=== PATIENT | male | born 1940 | race Caucasian/White ===

== ENCOUNTER 2020-05-13 12:40 | Day surgery (SDC) | payer OTHER ==
[~2020-05-13] VITALS: Ht 170.2 cm; Wt 88.7 kg
[2020-05-13] MEDS ORDERED: ASPI81CH PO (14:01)
[2020-05-13] MEDS ORDERED: HYDURE500 PO (14:01)
[2020-05-13] MEDS ORDERED: VITAMIN D350 MC2 PO (14:02)
[2020-05-13] MEDS ORDERED: OMEP20ER PO (14:02)
[2020-05-13] MEDS ORDERED: TRAM50 PO (14:04)
[2020-05-13] MEDS ORDERED: ATOR20 PO (14:05)
--- NOTE | 2020-05-13 15:28 | NUR ---
05/13/20 1528 Alysia Sneed BUPIVACAINE 0.5% W/ EPI 1:200,000 MIXED W/ LIDOCAINE 2% 1:100,000 1:1 FOR PRE INJECTION PER DR. PUGH.
== END 2020-05-13 16:31 | disposition home or self-care (01) ==
LOC: ORSCSDS 12:40
PROVIDERS: Ophthalmology
PROC: 08SP0ZZ Reposition Left Upper Eyelid, Open Approach (ICD-10-PCS; principal; 2020-05-13 14:45)
PROC: 08SN0ZZ Reposition Right Upper Eyelid, Open Approach (ICD-10-PCS; principal; 2020-05-13 14:45)
DX: H02.423 Myogenic ptosis of bilateral eyelids (principal); I10 Essential (primary) hypertension; E78.00 Pure hypercholesterolemia, unspecified; J45.909 Unspecified asthma, uncomplicated; G47.33 Obstructive sleep apnea (adult) (pediatric); Z79.82 Long term (current) use of aspirin; Z79.899 Other long term (current) drug therapy
CPT/HCPCS: J0171; J2405; J2704; J3010; J7040; J7120

== ENCOUNTER → 2021-09-28 | Outpatient (CLI) | payer OTHER ==
[~2021-09-28] MED LIST: ASPI81CH PO; ATOR20 PO; HYDURE500 PO; OMEP20ER PO; TRAM50 PO; VITAMIN D350 MC2 PO
[2021-09-28 19:16] LABS: BASOPHILS PERCENT AUTO 1 % (0-2); EOSINOPHILS ABSOLUTE AUTO 0.41 K/mm3 (0.00-0.68); EOSINOPHILS PERCENT AUTO 3 % (0-6); Hematocrit 52.7 % (37.0-53.0); Hemoglobin 13.6 g/dL (13.5-17.5); IMMATURE GRAN PERCENT AUTO 1 % (0-1); LYMPHOCYTES ABSOLUTE AUTO 2.58 K/mm3 (0.84-5.20); LYMPHOCYTES PERCENT AUTO 16 % (21-46); MONOCYTES ABSOLUTE AUTO 0.96 K/mm3 (0.16-1.47); MONOCYTES PERCENT AUTO 6 % (4-13); Mean Corpuscular HGB 16.5 pg (26.0-34.0); Mean Corpuscular HGB Conc 25.8 g/dL (31.5-36.5); Mean Corpuscular Volume 64 fL (80-100); NEUTROPHILS ABSOLUTE AUTO 11.84 K/mm3 (1.96-9.15); NEUTROPHILS PERCENT AUTO 74 % (41-73); NRBC ABSOLUTE 0.02 K/mm3 (0.00-0.02); NRBC Auto 0.1 /100 WBC (0.0-0.2); RDW Standard Deviation 49.8 fL (35.1-46.3); Red Blood Cell Count 8.22 M/mm3 (4.30-5.90); White Blood Cell Count 16.09 K/mm3 (4.00-11.30)
[2021-09-28 19:29] LABS: Albumin, Blood 3.6 g/dL (3.4-5.0); Albumin/Globulin Ratio 1.1 (0.8-1.8); Bilirubin, Total 0.7 mg/dL (0.1-1.0); Bun/Creatinine Ratio 14.6 (12.0-20.0); Calcium, Blood 9.1 mg/dL (8.5-10.1); Creatinine, Blood 1.44 mg/dL (0.60-1.20); Globulin, Blood 3.3 g/dL (2.2-4.0); Phosphorus, Blood 3.5 mg/dL (2.5-4.9); Potassium, Blood 4.6 mmol/L (3.5-5.5); Total Protein, Blood 6.9 g/dL (6.4-8.2)
[2021-09-28 19:57] LABS: Platelet Count 1062 K/mm3 (150-400)
== END ==
LOC: LAB SHORT 11:19
PROVIDERS: Internal Medicine Hematology & Oncology
DX: D45 Polycythemia vera (principal)
CPT/HCPCS: 80053; 84100; 85025

== ENCOUNTER → 2022-06-01 | Outpatient (CLI) | payer OTHER ==
[2022-06-01 20:34] LABS: Percent Saturation 3.7 % (20.0-50.0)
== END | disposition home or self-care (01) ==
LOC: LAB SHORT 11:22
PROVIDERS: Internal Medicine Hematology & Oncology
DX: D45 Polycythemia vera (principal)
CPT/HCPCS: 82728; 83540; 83550

== ENCOUNTER 2023-01-20 14:09 | Emergency (ER) | payer OTHER ==
[~2023-01-20] VITALS: Ht 175.3 cm; Wt 79.8 kg
[2023-01-20 17:29] LABS: BASOPHILS ABSOLUTE AUTO 0.24 K/mm3 (0.00-0.23); BASOPHILS PERCENT AUTO 1 % (0-2); EOSINOPHILS ABSOLUTE AUTO 0.39 K/mm3 (0.00-0.68); EOSINOPHILS PERCENT AUTO 2 % (0-6); Hematocrit 53.2 % (37.0-53.0); IMMATURE GRAN ABSOLUTE AUTO 0.15 K/mm3 (0.00-0.10); IMMATURE GRAN PERCENT AUTO 1 % (0-1); LYMPHOCYTES ABSOLUTE AUTO 2.47 K/mm3 (0.84-5.20); LYMPHOCYTES PERCENT AUTO 13 % (21-46); MONOCYTES ABSOLUTE AUTO 0.92 K/mm3 (0.16-1.47); MONOCYTES PERCENT AUTO 5 % (4-13); Mean Corpuscular HGB Conc 26.3 g/dL (31.5-36.5); Mean Corpuscular Volume 61 fL (80-100); Mean Platelet Volume 9.3 fL (9.1-12.4); NEUTROPHILS ABSOLUTE AUTO 14.99 K/mm3 (1.96-9.15); NEUTROPHILS PERCENT AUTO 78 % (41-73); NRBC ABSOLUTE 0.07 K/mm3 (0.00-0.02); NRBC Auto 0.4 /100 WBC (0.0-0.2); RDW Coefficient Variation 25.6 % (11.7-14.2); RDW Standard Deviation 47.8 fL (35.1-46.3); White Blood Cell Count 19.16 K/mm3 (4.00-11.30)
[2023-01-20 17:34] LABS: Red Blood Cell Count >8.60 M/mm3 (4.30-5.90)
[2023-01-20 17:38] LABS: Platelet Count 1585 K/mm3 (150-400)
[2023-01-20 17:52] LABS: Albumin, Blood 3.9 g/dL (3.4-5.0); Albumin/Globulin Ratio 1.3 (0.8-1.8); Bilirubin, Total 0.8 mg/dL (0.1-1.0); Bun/Creatinine Ratio 13.1 (12.0-20.0); Calcium, Blood 9.1 mg/dL (8.5-10.1); Creatinine, Blood 1.68 mg/dL (0.60-1.20); Globulin, Blood 2.9 g/dL (2.2-4.0); Total Protein, Blood 6.8 g/dL (6.4-8.2)
[2023-01-20 18:57] LABS: Source, Urine Clean Catch
[2023-01-20 19:00] LABS: Bilirubin, Urine Neg (Neg); Blood, Urine Neg (Neg); Color, Urine Yellow (P-Yellow); Glucose Qualitative, Urine Neg (Neg); Ketones, Urine Neg (Neg); Leukocyte Esterase, Urine Neg (Neg); Nitrite, Urine Neg (Neg); Protein, Urine 2+ (Neg); Urobilinogen, Urine 1+ (Normal)
[2023-01-20 19:09] LABS: BASOPHILS ABSOLUTE AUTO 0.22 K/mm3 (0.00-0.23); BASOPHILS PERCENT AUTO 1 % (0-2); EOSINOPHILS ABSOLUTE AUTO 0.43 K/mm3 (0.00-0.68); EOSINOPHILS PERCENT AUTO 2 % (0-6); Hematocrit 51.3 % (37.0-53.0); Hemoglobin 13.5 g/dL (13.5-17.5); IMMATURE GRAN ABSOLUTE AUTO 0.11 K/mm3 (0.00-0.10); IMMATURE GRAN PERCENT AUTO 1 % (0-1); LYMPHOCYTES ABSOLUTE AUTO 2.67 K/mm3 (0.84-5.20); LYMPHOCYTES PERCENT AUTO 15 % (21-46); MONOCYTES ABSOLUTE AUTO 0.78 K/mm3 (0.16-1.47); MONOCYTES PERCENT AUTO 4 % (4-13); Mean Corpuscular HGB Conc 26.3 g/dL (31.5-36.5); Mean Corpuscular Volume 61 fL (80-100); NEUTROPHILS ABSOLUTE AUTO 14.02 K/mm3 (1.96-9.15); NEUTROPHILS PERCENT AUTO 77 % (41-73); NRBC ABSOLUTE 0.06 K/mm3 (0.00-0.02); NRBC Auto 0.3 /100 WBC (0.0-0.2); RDW Coefficient Variation 25.3 % (11.7-14.2); RDW Standard Deviation 46.3 fL (35.1-46.3); Red Blood Cell Count 8.45 M/mm3 (4.30-5.90); White Blood Cell Count 18.23 K/mm3 (4.00-11.30)
[2023-01-20 19:12] LABS: Appearance, Urine Hazy (Clear)
[2023-01-20 19:13] LABS: Mucus Mod (0-Heavy)
[2023-01-20 19:14] LABS: Bacteria Many /hpf; Red Blood Cells, Urine 0-2 /hpf (0-2); Squamous Epithelial Cells Rare /hpf (Few); White Blood Cells, Urine 0-2 /hpf (0-5)
[2023-01-20 19:19] LABS: Platelet Count 1466 K/mm3 (150-400)
[2023-01-20] MEDS ORDERED: ASPIR 8181 M1 PO (19:36)
== END 2023-01-20 21:00 | disposition home or self-care (01) ==
LOC: ER 14:09
PROVIDERS: Family Medicine
DX: E87.5 Hyperkalemia (principal); D45 Polycythemia vera; D75.839 Thrombocytosis, unspecified; Z88.2 Allergy status to sulfonamides; Z79.899 Other long term (current) drug therapy; Z79.82 Long term (current) use of aspirin; Z79.84 Long term (current) use of oral hypoglycemic drugs
CPT/HCPCS: 80053; 81001; 83735; 85025; 87086; 93005; 93010; A9270; J7030

== ENCOUNTER → 2023-02-24 | Outpatient (CLI) | payer OTHER ==
[~2023-02-24] MED LIST changes: +ASPIR 8181 M1 PO
== END | disposition home or self-care (01) ==
LOC: LAB SHORT 13:17
DX: D51.8 Other vitamin B12 deficiency anemias (principal)
CPT/HCPCS: 82607; 82746

== ENCOUNTER 2023-12-14 16:26 | Emergency (ER) | payer OTHER ==
[~2023-12-14] VITALS: Ht 170.2 cm; Wt 77.1 kg
[~2023-12-14 16:26] MED LIST changes: +THERA-D2000 UNIT PO; -VITAMIN D350 MC2 PO
[2023-12-14 16:28] VITALS: BP 166/80
[2023-12-14 16:48] LABS: BASOPHILS ABSOLUTE AUTO 0.22 K/mm3 (0.00-0.23); BASOPHILS PERCENT AUTO 1 % (0-2); EOSINOPHILS ABSOLUTE AUTO 0.32 K/mm3 (0.00-0.68); EOSINOPHILS PERCENT AUTO 1 % (0-6); Hematocrit 53.1 % (37.0-53.0); Hemoglobin 14.1 g/dL (13.5-17.5); IMMATURE GRAN ABSOLUTE AUTO 0.31 K/mm3 (0.00-0.10); IMMATURE GRAN PERCENT AUTO 1 % (0-1); LYMPHOCYTES ABSOLUTE AUTO 1.46 K/mm3 (0.84-5.20); LYMPHOCYTES PERCENT AUTO 6 % (21-46); MONOCYTES PERCENT AUTO 3 % (4-13); Mean Corpuscular HGB 16.2 pg (26.0-34.0); Mean Corpuscular HGB Conc 26.6 g/dL (31.5-36.5); Mean Corpuscular Volume 61 fL (80-100); Mean Platelet Volume 8.8 fL (9.1-12.4); NEUTROPHILS ABSOLUTE AUTO 20.54 K/mm3 (1.96-9.15); NEUTROPHILS PERCENT AUTO 87 % (41-73); NRBC ABSOLUTE 0.09 K/mm3 (0.00-0.02); NRBC Auto 0.4 /100 WBC (0.0-0.2); RDW Coefficient Variation 25.8 % (11.7-14.2); RDW Standard Deviation 48.8 fL (35.1-46.3); White Blood Cell Count 23.55 K/mm3 (4.00-11.30)
[2023-12-14 16:59] LABS: Red Blood Cell Count >8.60 M/mm3 (4.30-5.90)
[2023-12-14 17:00] LABS: Platelet Count 2065 K/mm3 (150-400)
[2023-12-14 17:01] LABS: International Normalized Ratio 1.19; Prothrombin Time Results 12.4 Sec (9.7-11.5)
[2023-12-14 17:06] LABS: Albumin, Blood 3.9 g/dL (3.4-5.0); Albumin/Globulin Ratio 1.3 (0.8-1.8); Bilirubin, Total 1.2 mg/dL (0.1-1.0); Bun/Creatinine Ratio 12.9 (12.0-20.0); Calcium, Blood 9.5 mg/dL (8.5-10.1); Creatinine, Blood 1.39 mg/dL (0.60-1.20); Potassium, Blood 4.3 mmol/L (3.5-5.5); Total Protein, Blood 6.9 g/dL (6.4-8.2)
[2023-12-14] MEDS ORDERED: Acetaminophen 500 MG Tab PO ONE (18:20)
[2023-12-14] MEDS ORDERED: ASPI325 PO (18:30)
[2023-12-15] MEDS ORDERED: CLOT10 MT (16:46)
[2023-12-15] MEDS ORDERED: NYST237S PO (16:47)
== END 2023-12-14 19:03 | disposition home or self-care (01) ==
LOC: ER 16:26
PROVIDERS: Emergency Medicine
DX: S32.019A Unspecified fracture of first lumbar vertebra, initial encounter for closed fracture (principal); D75.839 Thrombocytosis, unspecified; D72.829 Elevated white blood cell count, unspecified; Z86.73 Personal history of transient ischemic attack (TIA), and cerebral infarction without residual deficits; Z79.82 Long term (current) use of aspirin; Z79.899 Other long term (current) drug therapy; Z88.2 Allergy status to sulfonamides; V43.52XA Car driver injured in collision with other type car in traffic accident, initial encounter; Y92.410 Unspecified street and highway as the place of occurrence of the external cause
CPT/HCPCS: 70450; 71045; 71260; 72125; 74177; 80053; 85025; 85610; 93005; 93010; 99285-25; A9270; Q9967

== ENCOUNTER 2023-12-16 08:58 | Emergency (ER) | payer OTHER ==
[~2023-12-16] VITALS: Ht 180.3 cm; Wt 77.1 kg
[~2023-12-16 08:58] MED LIST changes: +ASPI325 PO; +CLOT10 MT; +NYST237S PO
[2023-12-16] MEDS ORDERED: NS 1,000 ML IV SCH (09:10)
[2023-12-16 09:34] LABS: BASOPHILS ABSOLUTE AUTO 0.22 K/mm3 (0.00-0.23); BASOPHILS PERCENT AUTO 1 % (0-2); EOSINOPHILS ABSOLUTE AUTO 0.02 K/mm3 (0.00-0.68); EOSINOPHILS PERCENT AUTO 0 % (0-6); Hemoglobin 10.4 g/dL (13.5-17.5); IMMATURE GRAN PERCENT AUTO 3 % (0-1); LYMPHOCYTES ABSOLUTE AUTO 0.85 K/mm3 (0.84-5.20); LYMPHOCYTES PERCENT AUTO 2 % (21-46); MONOCYTES ABSOLUTE AUTO 2.12 K/mm3 (0.16-1.47); MONOCYTES PERCENT AUTO 5 % (4-13); Mean Platelet Volume 9.5 fL (9.1-12.4); NEUTROPHILS PERCENT AUTO 90 % (41-73); NRBC ABSOLUTE 0.53 K/mm3 (0.00-0.02); NRBC Auto 1.1 /100 WBC (0.0-0.2); White Blood Cell Count 46.71 K/mm3 (4.00-11.30)
[2023-12-16 09:37] LABS: Hematocrit 38.5 % (37.0-53.0); Mean Corpuscular HGB 16.5 pg (26.0-34.0); Mean Corpuscular Volume 61 fL (80-100); RDW Coefficient Variation 25.2 % (11.7-14.2); RDW Standard Deviation 49.3 fL (35.1-46.3); Red Blood Cell Count 6.31 M/mm3 (4.30-5.90)
[2023-12-16 09:39] LABS: Albumin, Blood 3.2 g/dL (3.4-5.0); Calcium, Blood 9.5 mg/dL (8.5-10.1); Platelet Count 1814 K/mm3 (150-400); Potassium, Blood 5.9 mmol/L (3.5-5.5)
[2023-12-16 09:42] LABS: Albumin/Globulin Ratio 1.2 (0.8-1.8); Bilirubin, Total 0.8 mg/dL (0.1-1.0); Bun/Creatinine Ratio 11.5 (12.0-20.0); Creatinine, Blood 3.21 mg/dL (0.60-1.20); Globulin, Blood 2.7 g/dL (2.2-4.0); Total Protein, Blood 5.9 g/dL (6.4-8.2)
[2023-12-16 09:57] LABS: BAND PERCENT MAN 3 % (0-8); BASOPHILS PERCENT MAN 0 % (0-2); EOSINOPHILS PERCENT MAN 0 % (0-6); LYMPHOCYTES ABSOLUTE MAN 0.46 K/mm3 (0.84-5.20); LYMPHOCYTES PERCENT MAN 1 % (21-46); MONOCYTES ABSOLUTE MAN 1.86 K/mm3 (0.16-1.47); MONOCYTES PERCENT MAN 4 % (4-13); NEUTROPHILS ABSOLUTE MAN 44.37 K/mm3 (1.96-9.15); SEG NEUTROPHILS PERCENT MAN 92 % (41-73); TOTAL CELLS COUNTED 100
[2023-12-16] MEDS ORDERED: NS 500 ML IV SCH (10:10)
[2023-12-16] MEDS ORDERED: OxyCODONE HCL 5 MG TAB PO PRN (12:20)
[2023-12-16] MEDS ORDERED: Prochlorperazine 25 MG Supp PR PRN (12:20)
[2023-12-16] MEDS ORDERED: HYDROmorphone HCl/Pf 1MG SYR IV PRN (12:20)
[2023-12-16] MEDS ORDERED: Ondansetron 4 MG TAB PO PRN (12:20)
[2023-12-16] MEDS ORDERED: Naloxone HCl 0.4MG / ML 1ML Vial IV PRN (12:20)
[2023-12-16] MEDS ORDERED: TraZODone HCl 50 MG Tab PO PRN (12:20)
[2023-12-16] MEDS ORDERED: Magnesium Hydroxide Conc 10 ML UDC PO PRN (12:20)
[2023-12-16] MEDS ORDERED: FLU VACC QS2023-24(6MOS UP)/PF 60 MCG/0.5 ML SYRINGE IM ONE (12:25)
[2023-12-16] MEDS ORDERED: Acetaminophen 650 MG Supp PR PRN (12:25)
[2023-12-16] MEDS ORDERED: Bisacodyl 10 MG Supp PR PRN (12:25)
[2023-12-16] MEDS ORDERED: HYDROXYurea 500 MG Cap PO SCH (13:00)
[2023-12-16] MEDS ORDERED: Lactated Ringer's 1,000 ML IV SCH (13:00)
[2023-12-16] MEDS ORDERED: Piperacillin/Tazobactam Sod 3.375 GM in NS 50 ML IV ONE (13:15)
[2023-12-16] MEDS ORDERED: Lactated Ringer's 500 ML IV ONE (13:40)
[2023-12-16] MEDS ORDERED: Sodium Zirconium Cyclosilicate 10 GM Packet PO SCH (14:00)
[2023-12-16 15:11] VITALS: BP 104/61
[2023-12-16] MEDS ORDERED: Famotidine 20 MG Tab PO SCH (21:00)
[2023-12-16] MEDS ORDERED: Docusate Sodium 100 MG Cap PO SCH (21:00)
[2023-12-16] MEDS ORDERED: Lactobacil 2-S.Thermo-Bifido 1 1 Cap PO SCH (21:00)
== END 2023-12-16 15:17 | disposition short-term general hospital (02) ==
LOC: ER 08:58
PROVIDERS: Emergency Medicine
DX: K68.3 Retroperitoneal hematoma (principal); N17.9 Acute kidney failure, unspecified; Z79.82 Long term (current) use of aspirin; Z79.899 Other long term (current) drug therapy; Z88.2 Allergy status to sulfonamides; W06.XXXA Fall from bed, initial encounter
CPT/HCPCS: 74177; 80053; 82550; 83690; 84484; 85025; 85651; 86141; 86850; 86900; 86901; 93005; 93010; 96360-59; 96361; 99285-25; J7030; J7120; Q9967

== ENCOUNTER 2024-04-10 09:30 | Emergency (ER) | payer OTHER ==
[~2024-04-10] VITALS: Ht 170.2 cm; Wt 99.8 kg
[~2024-04-10 09:30] MED LIST changes: +HYDR1TAB94 PO
[2024-04-10] MEDS ORDERED: TraMADol HCl 50 MG Tab PO ONE (10:30)
[2024-04-10] MEDS ORDERED: Acetaminophen 325 MG TABLET PO ONE (10:30)
[2024-04-10 11:31] LABS: Bun/Creatinine Ratio 15.3 (12.0-20.0); Calcium, Blood 9.5 mg/dL (8.5-10.1); Creatinine, Blood 1.31 mg/dL (0.60-1.20)
[2024-04-10] MEDS ORDERED: TRAM50 PO (13:02)
[2024-04-10 16:13] VITALS: BP 148/79
== END 2024-04-10 16:15 | disposition home or self-care (01) ==
LOC: ER 09:30
PROVIDERS: Student in an Organized Health Care Education/Training Program
DX: S42.021D Displaced fracture of shaft of right clavicle, subsequent encounter for fracture with routine healing (principal); W18.30XD Fall on same level, unspecified, subsequent encounter; Z86.73 Personal history of transient ischemic attack (TIA), and cerebral infarction without residual deficits; Z79.82 Long term (current) use of aspirin; Z79.899 Other long term (current) drug therapy; Z88.2 Allergy status to sulfonamides
CPT/HCPCS: 73030; 80048; 99284-25; A9270

== ENCOUNTER 2024-04-15 17:58 | Emergency (ER) | payer OTHER ==
[~2024-04-15] VITALS: Ht 170.2 cm; Wt 95.2 kg
[2024-04-15 18:54] LABS: BASOPHILS ABSOLUTE AUTO 0.25 K/mm3 (0.00-0.23); BASOPHILS PERCENT AUTO 1 % (0-2); EOSINOPHILS ABSOLUTE AUTO 0.96 K/mm3 (0.00-0.68); EOSINOPHILS PERCENT AUTO 4 % (0-6); Hematocrit 54.4 % (37.0-53.0); Hemoglobin 14.8 g/dL (13.5-17.5); IMMATURE GRAN ABSOLUTE AUTO 0.22 K/mm3 (0.00-0.10); IMMATURE GRAN PERCENT AUTO 1 % (0-1); LYMPHOCYTES ABSOLUTE AUTO 1.99 K/mm3 (0.84-5.20); LYMPHOCYTES PERCENT AUTO 9 % (21-46); MONOCYTES ABSOLUTE AUTO 0.78 K/mm3 (0.16-1.47); MONOCYTES PERCENT AUTO 3 % (4-13); Mean Corpuscular HGB 17.2 pg (26.0-34.0); Mean Corpuscular HGB Conc 27.2 g/dL (31.5-36.5); Mean Corpuscular Volume 63 fL (80-100); Mean Platelet Volume 8.9 fL (9.1-12.4); NEUTROPHILS ABSOLUTE AUTO 18.73 K/mm3 (1.96-9.15); NEUTROPHILS PERCENT AUTO 82 % (41-73); NRBC ABSOLUTE 0.05 K/mm3 (0.00-0.02); NRBC Auto 0.2 /100 WBC (0.0-0.2); RDW Coefficient Variation 27.9 % (11.7-14.2); Red Blood Cell Count 8.58 M/mm3 (4.30-5.90); White Blood Cell Count 22.93 K/mm3 (4.00-11.30)
[2024-04-15 19:10] LABS: Platelet Count 1370 K/mm3 (150-400)
[2024-04-15 19:17] LABS: Albumin, Blood 3.5 g/dL (3.4-5.0); Albumin/Globulin Ratio 1.2 (0.8-1.8); Bilirubin, Total 0.8 mg/dL (0.1-1.0); Bun/Creatinine Ratio 10.3 (12.0-20.0); Calcium, Blood 9.6 mg/dL (8.5-10.1); Creatinine, Blood 1.36 mg/dL (0.60-1.20); Globulin, Blood 2.9 g/dL (2.2-4.0); Potassium, Blood 4.8 mmol/L (3.5-5.5); Total Protein, Blood 6.4 g/dL (6.4-8.2)
[2024-04-15 19:39] LABS: Source, Urine Clean Catch
[2024-04-15 19:42] LABS: Appearance, Urine Clear (Clear); Bilirubin, Urine Neg (Neg); Blood, Urine Neg (Neg); Color, Urine Yellow (P-Yellow); Glucose Qualitative, Urine Neg (Neg); Ketones, Urine Neg (Neg); Leukocyte Esterase, Urine Neg (Neg); Nitrite, Urine Neg (Neg); Protein, Urine 1+ (Neg); Urobilinogen, Urine NORM (Normal)
[2024-04-15 22:32] VITALS: BP 139/72
== END 2024-04-15 22:25 | disposition home or self-care (01) ==
LOC: ER 17:58
PROVIDERS: Emergency Medicine
DX: R29.6 Repeated falls (principal); D45 Polycythemia vera; N18.9 Chronic kidney disease, unspecified; Z86.73 Personal history of transient ischemic attack (TIA), and cerebral infarction without residual deficits; S42.001A Fracture of unspecified part of right clavicle, initial encounter for closed fracture; W19.XXXA Unspecified fall, initial encounter; Z88.2 Allergy status to sulfonamides; Z79.82 Long term (current) use of aspirin; Z79.899 Other long term (current) drug therapy
CPT/HCPCS: 70450; 80053; 85025

== ENCOUNTER 2024-07-23 08:10 | Emergency (ER) | payer OTHER ==
[~2024-07-23] VITALS: Ht 170.2 cm; Wt 61.2 kg
[2024-07-23 13:33] VITALS: BP 142/83
== END 2024-07-23 15:27 | disposition home or self-care (01) ==
LOC: ER 08:10
DX: M54.50 Low back pain, unspecified (principal); Z86.73 Personal history of transient ischemic attack (TIA), and cerebral infarction without residual deficits; Z79.82 Long term (current) use of aspirin; Z79.899 Other long term (current) drug therapy; Z88.2 Allergy status to sulfonamides
CPT/HCPCS: 72100; 99283-25

== ENCOUNTER 2024-10-09 21:31 | Inpatient (IN) | payer OTHER ==
[~2024-10-09] VITALS: Ht 170.2 cm; Wt 70.0 kg
[2024-10-09 23:09] LABS: Alanine Aminotransfer (ALT/SGP 18 U/L (12-78); Albumin, Blood 3.4 g/dL (3.4-5.0); Albumin/Globulin Ratio 1.2 (0.8-1.8); Alk Phos 58 U/L (50-136); Anion Gap 12 mmol/L (3-11); Aspartate Aminotrans (AST/SGOT 31 U/L (12-37); Blood Urea Nitrogen 20 mg/dL (8-24); Bun/Creatinine Ratio 13.9 (12.0-20.0); CO2, Blood 24 mmol/L (21-32); Calcium, Blood 9.4 mg/dL (8.5-10.1); Chloride, Blood 110 mmol/L (98-108); Creatinine, Blood 1.44 mg/dL (0.60-1.20); Ethanol (Alcohol), Blood, Med <3 mg/dL; Globulin, Blood 2.9 g/dL (2.2-4.0); Glomerular Filtration Rate 48 (60-); Glucose, Blood 89 mg/dL (70-99); Potassium, Blood 4.5 mmol/L (3.5-5.5); Sodium, Blood 141 mmol/L (136-145); Total Protein, Blood 6.3 g/dL (6.4-8.2)
[2024-10-10 00:03] LABS: Hemoglobin 13.8 g/dL (13.5-17.5); NRBC ABSOLUTE 0.11 K/mm3 (0.00-0.02); NRBC Auto 0.4 /100 WBC (0.0-0.2); White Blood Cell Count 26.09 K/mm3 (4.00-11.30)
[2024-10-10 00:10] LABS: Hematocrit 51.3 % (37.0-53.0); Mean Corpuscular HGB Conc 26.9 g/dL (31.5-36.5); Mean Corpuscular Volume 59 fL (80-100); Mean Platelet Volume 8.6 fL (9.1-12.4); Platelet Count 1641 K/mm3 (150-400); RDW Coefficient Variation 27.4 % (11.7-14.2); RDW Standard Deviation 51.2 fL (35.1-46.3); Red Blood Cell Count >8.60 M/mm3 (4.30-5.90)
[2024-10-10 00:13] LABS: BAND PERCENT MAN 1 % (0-8); BASOPHILS ABSOLUTE MAN 0.52 K/mm3 (0.00-0.23); BASOPHILS PERCENT MAN 2 % (0-2); EOSINOPHILS ABSOLUTE MAN 0.26 K/mm3 (0.00-0.68); EOSINOPHILS PERCENT MAN 1 % (0-6); LYMPHOCYTES % ATYPICAL MANUAL 1 % (0-0); LYMPHOCYTES ABSOLUTE MAN 1.82 K/mm3 (0.84-5.20); LYMPHOCYTES PERCENT MAN 6 % (21-46); METAMYELOCYTE ABSOLUTE MAN 0.26 K/mm3 (0.00-0.00); METAMYELOCYTE PERCENT MAN 1 % (0-0); MONOCYTES PERCENT MAN 0 % (4-13); NEUTROPHILS ABSOLUTE MAN 23.22 K/mm3 (1.96-9.15); SEG NEUTROPHILS PERCENT MAN 88 % (41-73); TOTAL CELLS COUNTED 100
[2024-10-10] MEDS ORDERED: Lactated Ringer's 1,000 ML IV ONE (00:45)
[2024-10-10 01:00] LABS: Source, Urine Clean Catch
[2024-10-10 01:16] LABS: Bilirubin, Urine Neg (Neg); Blood, Urine Neg (Neg); Glucose Qualitative, Urine 2+ (Neg); Ketones, Urine 1+ (Neg); Leukocyte Esterase, Urine 2+ (Neg); Nitrite, Urine Pos (Neg); Protein, Urine 3+ (Neg); Specific Gravity, Urine 1.025 (1.003-1.022); Urobilinogen, Urine NORM (Normal)
[2024-10-10 01:28] LABS: U Amphetamine Screen Not Detected; U Barbituate Screen Not Detected; U Benzodiazapine Screen Not Detected; U Buprenorphine Screen Not Detected; U Cannabinoids Screen Not Detected; U Cocaine Screen Not Detected; U Methadone Screen Not Detected; U Methamphetamine Screen Not Detected; U Opiates Screen Not Detected; U Oxycodone Screen Not Detected; U Phencyclidine Screen Not Detected
[2024-10-10 01:33] LABS: Appearance, Urine Hazy (Clear); Color, Urine Yellow (P-Yellow)
[2024-10-10 01:34] LABS: Amorphous Light (0-Heavy); Bacteria Mod /hpf; Red Blood Cells, Urine 0-2 /hpf (0-2); Squamous Epithelial Cells Many /hpf (Few); White Blood Cells, Urine 0-2 /hpf (0-5)
[2024-10-10 01:35] LABS: Hyaline Casts 0-2 /lpf (0-2)
[2024-10-10] MEDS ORDERED: FLU VACC TS2024-25(6MOS UP)/PF 45 MCG/0.5 ML SYRINGE IM ONE (02:15)
[2024-10-10 02:46] LABS: Magnesium, Blood 2.2 mg/dL (1.6-2.4); Phosphorus, Blood 4.2 mg/dL (2.5-4.9); Thyroid Stimulating Hormone 4.04 uIU/mL (0.360-4.800)
[2024-10-10] MEDS ORDERED: CefTRIAXone Sodium 1,000 MG in NS 100 ML IV SCH (03:00)
[2024-10-10 05:21] LABS: Hemoglobin 12.9 g/dL (13.5-17.5); NRBC ABSOLUTE 0.09 K/mm3 (0.00-0.02); NRBC Auto 0.4 /100 WBC (0.0-0.2); White Blood Cell Count 22.32 K/mm3 (4.00-11.30)
[2024-10-10 05:27] LABS: Hematocrit 47.7 % (37.0-53.0); Mean Corpuscular Volume 59 fL (80-100); RDW Coefficient Variation 26.9 % (11.7-14.2); RDW Standard Deviation 50.3 fL (35.1-46.3); Red Blood Cell Count 8.04 M/mm3 (4.30-5.90)
[2024-10-10 05:28] LABS: Platelet Count 1269 K/mm3 (150-400)
[2024-10-10 05:48] LABS: BAND PERCENT MAN 3 % (0-8); BASOPHILS ABSOLUTE MAN 0.22 K/mm3 (0.00-0.23); BASOPHILS PERCENT MAN 1 % (0-2); EOSINOPHILS ABSOLUTE MAN 1.11 K/mm3 (0.00-0.68); EOSINOPHILS PERCENT MAN 5 % (0-6); LYMPHOCYTES ABSOLUTE MAN 2.23 K/mm3 (0.84-5.20); LYMPHOCYTES PERCENT MAN 10 % (21-46); MONOCYTES ABSOLUTE MAN 0.44 K/mm3 (0.16-1.47); MONOCYTES PERCENT MAN 2 % (4-13); SEG NEUTROPHILS PERCENT MAN 79 % (41-73); TOTAL CELLS COUNTED 100
[2024-10-10 05:56] LABS: Albumin/Globulin Ratio 1.2 (0.8-1.8); Bilirubin, Total 0.9 mg/dL (0.1-1.0); Bun/Creatinine Ratio 14.3 (12.0-20.0); Calcium, Blood 8.9 mg/dL (8.5-10.1); Creatinine, Blood 1.33 mg/dL (0.60-1.20); Globulin, Blood 2.6 g/dL (2.2-4.0); Potassium, Blood 4.3 mmol/L (3.5-5.5); Total Protein, Blood 5.6 g/dL (6.4-8.2)
[2024-10-10] MEDS ORDERED: NS 1,000 ML IV SCH ×2 (06:55→09:20)
[2024-10-10] MEDS ORDERED: Atorvastatin 40 MG Tab PO SCH (09:00)
[2024-10-10] MEDS ORDERED: Clopidogrel Bisulfate 75 MG Tab PO SCH (09:00)
[2024-10-10] MEDS ORDERED: Lactobacil 2-S.Thermo-Bifido 1 1 Cap PO SCH (09:00)
[2024-10-10] MEDS ORDERED: Aspirin 81 MG Chew PO SCH (09:00)
[2024-10-10] MEDS ORDERED: Enoxaparin 40 MG/0.4 ML SYR SC SCH (09:00)
--- NOTE | 2024-10-10 09:00 | NUR ---
ARRIVAL TO PCU 6 PT ARRIVED TO PCU AT APPROXIMATELY 0840. PT SLID OVER FROM ER [facility] TO HOSPITAL BED BY 3 CLINICAL STAFF MEMBERS. PT A&Ox3, ANSWERS QUESTIONS APPROPRIATELY BUT IS FORGETFUL AND POOR HISTORIAN. ORIENTED TO CALL LIGHT/UNIT. BP STABLE, SINUS 80's, DENIES CP/PRESSURE. SpO2> 92% RA, DENIES SOB. 1 ASSIST TO BSC, CONTINENT OF BOWEL, MOMENTS OF INCONTINENT OF URINE, MALE PUREWICK IN PLACE. DENEIS PAIN. BED IN LOWEST POSITION, CALL LIGHT IN REACH.
[2024-10-10 09:31] VITALS: BP 138/80
[2024-10-10 11:48] VITALS: BP 122/99
[2024-10-10 16:06] VITALS: BP 135/67
--- NOTE | 2024-10-10 17:32 | NUR ---
SHIFT SUMMARY SEE PREVIOUS NOTE. PT A&Ox3, ANSWERS QUESTIONS APPROPRIATELY BUT IS FORGETFUL AND POOR HISTORIAN. AT TIMES PT A&Ox2, HAD TROUBLE FOLLOWING DIRECTION AND WAS NOT ABLE TO STATE WHERE HE WAS. BP STABLE, SINUS 80's, DENIES CP/PRESSURE. SpO2> 92% RA, DENIES SOB. 1 ASSIST TO BSC, CONTINENT OF BOWEL, MOMENTS OF INCONTINENT OF URINE, DENIES PAIN. NO OTHER EVENTS, WILL REPORT TO ONCOMING RN.
[2024-10-10 20:30] VITALS: BP 130/67
[2024-10-10 23:46] VITALS: BP 118/49
[2024-10-11 04:17] VITALS: BP 142/79
[2024-10-11 04:29] LABS: BASOPHILS ABSOLUTE AUTO 0.36 K/mm3 (0.00-0.23); BASOPHILS PERCENT AUTO 1 % (0-2); EOSINOPHILS ABSOLUTE AUTO 0.66 K/mm3 (0.00-0.68); EOSINOPHILS PERCENT AUTO 3 % (0-6); Hemoglobin 13.5 g/dL (13.5-17.5); IMMATURE GRAN ABSOLUTE AUTO 0.25 K/mm3 (0.00-0.10); IMMATURE GRAN PERCENT AUTO 1 % (0-1); LYMPHOCYTES ABSOLUTE AUTO 2.11 K/mm3 (0.84-5.20); LYMPHOCYTES PERCENT AUTO 8 % (21-46); MONOCYTES ABSOLUTE AUTO 0.82 K/mm3 (0.16-1.47); MONOCYTES PERCENT AUTO 3 % (4-13); NEUTROPHILS PERCENT AUTO 83 % (41-73); NRBC Auto 0.4 /100 WBC (0.0-0.2)
--- NOTE | 2024-10-11 04:30 | NUR ---
SHIFT SUMMARY. SHIFT HAS GONE WELL THUS FAR. REMAINS CONFUSED BUT VERY DIRECTABLE AND COOPERATIVE WITH CARE. BED ALARM HAS BEEN ACTIVE THROUGHOUT SHIFT, PT AT TIMES IMPULSIVE BUT ALWAYS RESPONSIVE TO DIRECTION AND VERY PLEASANT. INCONTINENT AT TIMES AND CONTINENT AT OTHER TIMES. HAS CONTINUED TO DENY PAIN THROUGHOUT SHIFT. VITALS REMAIN STABLE. CONTINUES TO MAINTAIN ADEQUATE SATURATION ON ROOM AIR. BED LOCKED IN LOWEST POSITION. CALL LIGHT LEFT WITHIN REACH. CONTINUING TO MONITOR.
[2024-10-11 04:56] LABS: Bun/Creatinine Ratio 14.8 (12.0-20.0); Calcium, Blood 9.4 mg/dL (8.5-10.1); Creatinine, Blood 1.28 mg/dL (0.60-1.20); Potassium, Blood 4.4 mmol/L (3.5-5.5)
[2024-10-11 05:02] LABS: Mean Corpuscular HGB 15.9 pg (26.0-34.0); Mean Corpuscular Volume 59 fL (80-100); RDW Coefficient Variation 27.5 % (11.7-14.2); RDW Standard Deviation 49.4 fL (35.1-46.3); Red Blood Cell Count 8.48 M/mm3 (4.30-5.90)
[2024-10-11 05:04] LABS: Mean Platelet Volume 8.9 fL (9.1-12.4); Platelet Count 1498 K/mm3 (150-400)
[2024-10-11 07:44] VITALS: BP 145/111
--- NOTE | 2024-10-11 07:56 | NUR ---
am note this rn assumed care at 0700 from ashlyn rn and bedside shift report done. vital signs stable. tele sinus rhythm 80s-90s. spo2 >95% on room air. patient is alert and oriented x4, date/time, location, current situation, person, and self. patient is able to make needs known. patient states it is hard for him to get his words out since his stroke. patient is one person standby with walker. patient is able to void independently. patient lung sounds clear throughout at this time. denies shortness of breath. denies pain, chest pain/pressure. see shift assessment for further detials. md mccain in room and discusssing patient to go home today. patient agrees to this.
--- NOTE | 2024-10-11 10:07 | NUR ---
update patient worked with physical therapy this morning.
[2024-10-11 12:20] VITALS: BP 116/60
[2024-10-11 16:06] VITALS: BP 125/86
--- NOTE | 2024-10-11 17:05 | NUR ---
shift summary vital signs remain stable. tele remains sinus rhythm 80s. spo2 >90% on room air. patient neuro remains unchanged throughout the shift. patient does have intermittent forgetfulness and confusion. patient does need cueing when doing activities such as dressing, washing hands, etc. patient does not use call light despite frequent reminders and education, patient will set off chair and bed alarm when trying to get up. no acute changes throughout the shift.
[2024-10-11 20:13] VITALS: BP 130/80
[2024-10-11] MEDS ORDERED: Cefpodoxime Proxetil 200 MG Tab PO SCH (21:00)
--- NOTE | 2024-10-11 22:00 | NUR ---
PT TRANSFERED FROM PCU 6. 2ND NURSE SKIN CHECK PERFORMED BY THIS RN AND SHAYLA HURT. SMALL RASH TO RIGHT FLANK. DRY SKIN NOTED ON THE FEET. PT REPORTS PAIN DURING PALPATION OF THE RIGHT 5TH TOE, NO BRUISING OR REDNESS NOTED.
[2024-10-11 23:07] VITALS: BP 132/74
--- NOTE | 2024-10-12 04:14 | NUR ---
SHIFT SUMMARY PT IS A/OX3, CONFUSION AT TIMES. PT TRANSFERED FROM PCU. NO ACUTE EVENTS THROUGHOUT THIS SHIFT. HARD OF HEARING. PER REPORT PT IS IMPULSIVE AT TIMES HOWEVER REDIRECTABLE, BED ALARM ON. PT SLEPT THROUGHOUT MUCH OF THIS SHIFT. NO IV ACCESS. ON TELE RUNNING NORMAL SINUS RYTHYM IN THE 'S. PER REPORT PT IS CONT/INCONT, PURWICK CURRENTLY IN PLACE DRAINING CLEAR, YELLOW URINE.
[2024-10-12 05:50] VITALS: BP 145/83
[2024-10-12 07:15] VITALS: BP 140/72
[2024-10-12 07:48] LABS: Bun/Creatinine Ratio 19.1 (12.0-20.0); Calcium, Blood 9.7 mg/dL (8.5-10.1); Creatinine, Blood 1.36 mg/dL (0.60-1.20); Potassium, Blood 4.1 mmol/L (3.5-5.5)
[2024-10-12 15:25] VITALS: BP 113/74
--- NOTE | 2024-10-12 17:08 | NUR ---
SHIFT SUMMARY PT CONT LEVEL OF CARE WITH NO ACUTE CHANGES NOTED. PT IS a7O X3-4 WITH SOME CONFUSION NOTED. PT IS ASSIST X1 WITH FWW. PT CONT TO HAVE PUREWICK IN PLACE FOR INCONT.
[2024-10-12 19:18] VITALS: BP 105/55
--- NOTE | 2024-10-13 04:36 | NUR ---
SHIFT SUMMARY PT IS A/OX2-3, CONFUSION OF DATE/TIME AND PLACE. NO ACUTE CHANGED THROUGHOUT THIS SHIFT. PT SLEPT MUCH OF THE NIGHT. PT IS INCONTINENT OF BLADDER, PURWICK IN PLACE DRAINING CLEAR, YELLOW URINE. PT INCONTINENT AT TIMES, BED ALARM ON.
[2024-10-13 05:09] VITALS: BP 127/77
[2024-10-13 07:04] VITALS: BP 119/54
[2024-10-13 15:23] VITALS: BP 121/106
--- NOTE | 2024-10-13 17:28 | NUR ---
SHIFT [place] PT CONT LEVEL OF CARE WITH NO ACUTE CHANGES NOTED.
[2024-10-13 21:00] VITALS: BP 107/61
--- NOTE | 2024-10-14 04:54 | NUR ---
Pt A&O x3, forgetfull at times, and does not call for assist to transfer so he is on a bedalarm, and chair alarm. Pt incontinent, unsteady with transfers, PT/OT working with Pt. Case management to assist in finding placement as Pt no safe at home. VS WNL. Skin intact. rested well this shift.
[2024-10-14 04:57] VITALS: BP 134/77
[2024-10-14 07:21] VITALS: BP 132/77
[2024-10-14 14:57] VITALS: BP 117/60
--- NOTE | 2024-10-14 18:23 | NUR ---
PT CONT LEVEL OF CARE WITH NO ACUTE CHANGES NOTED THIS SHIFT.
[2024-10-14 19:28] VITALS: BP 101/51
[2024-10-15 02:54] VITALS: BP 123/58
--- NOTE | 2024-10-15 05:43 | NUR ---
Pt did not sleep well last night. Up several times to BR, and then to chair, and then back to bed. Could not make up his mind where he wanted to be. Denies pain. VS WNL, incontinent of urine. still awaiting placment notification from his state appointed case assistant. very impulsive so chair and bed alarms are in use.
[2024-10-15 07:19] VITALS: BP 116/55
[2024-10-15 16:10] VITALS: BP 112/49
--- NOTE | 2024-10-15 16:59 | NUR ---
SHIFT SUMMARY: NO EVENTS OR CHANGES WITH PATIENT THROUGHOUT THE SHIFT. HE WAS EVALUATED BY ИВАН'Jarrett STEVENS TODAY. PATIENT IS CONFUSED A&O TO SELF AND PLACE, MAKES HIS NEEDS KNOWN, CAN BE IMPUSLIVE, HE IS STEADY ON HIS FEET AND CONTINENT. HE IS PLEASANT AND COOPERATIVE WITH CARE. HE IS SITTING IN THE BEDSIDE CHAIR, CALL LIGHT WITHIN REACH, CHAIR ALARM ON, NO SIGNS OR SYMPTOMS OF DISTRESS, PLAN OF CARE ONGOING.
[2024-10-15 19:12] VITALS: BP 102/54
[2024-10-16 03:03] VITALS: BP 131/114
--- NOTE | 2024-10-16 04:15 | NUR ---
NO ACUTE CHANGES OR EVENTS NOTED THIS SHIFT. PATIENT IS ALERT TO SELF AND PLEASANTLY CONFUSED. PATIENT CAN BE IMPULSIVE WHEN HE NEEDS TO USE THE RESTROOM-BED ALARM ON WHEN IN BED AND CHAIR ALARM ON WHEN IN CHAIR. PATIENT IS CURRENTLY IN CHAIR WATCHING TV-CHAIR ALARM IS ON FOR PATIENT SAFETY. CHAIR IS A METAL FRAMED CHAIR W/O LOCKS THAT IS PLACED SECURELY IN ROOM. CARE IS ONGOING.
[2024-10-16 07:15] VITALS: BP 135/69
[2024-10-16 14:52] VITALS: BP 115/54
[2024-10-16] MEDS ORDERED: Aspir 8181 MG PO (15:02)
[2024-10-16] MEDS ORDERED: ATOR80 PO (15:02)
[2024-10-16] MEDS ORDERED: DiphenhydrAMINE HCL 25 MG Cap PO PRN (15:30)
--- NOTE | 2024-10-16 17:32 | NUR ---
SHIFT SUMMARY PT A&OX2-[place], IMPULSIVE AT TIMES WHEN NEEDING TO USE THE BATHROOM, VSS, AMB W/ 1P SBA, TOLERATING PO, VOIDING, AND DENIED PAIN. PT C/O ITCHING THAT WAS MEDICATED PER EMAR. NO OTHER ACUTE CHANGES THIS SHIFT. CALL LIGHT WITHIN REACH AND CHAIR ALARM ON.
[2024-10-16 20:00] VITALS: BP 106/50
--- NOTE | 2024-10-17 04:10 | NUR ---
SHIFT SUMMARY. NO ACUTE CHANGES OR EVENTS TONIGHT. PATIENT IS A&OX2, PATIENT INPULSIVE AT TIMES WHEN HE NEEDS TO USE THE BATHROOM. PATIENTS VSS HAS REMAINED STABLE T/O SHIFT. PATIENT HAS DENIED PAIN. VOIDING W/O COMPLICATIONS. BED IS LOCKED IN THE LOWEST BED WITH ALARM ON. CALL LIGHT IN REACH. CARE IS ONGOING.
[2024-10-17 04:41] VITALS: BP 133/60
[2024-10-17 07:18] VITALS: BP 101/54
[2024-10-17 15:00] VITALS: BP 129/70
--- NOTE | 2024-10-17 15:38 | NUR ---
SPOKE WITH PATIENTS FRIEND/ DECISION MAKER LISA ON THE PHONE. HE WILL FILL OUT A POLST TOMORROW WHEN HE COMES TO ORTHOTIC/PROSTHETIC PRACTITIONER THE PATIENT.
--- NOTE | 2024-10-17 17:29 | NUR ---
SHIFT SUMMARY PT CONT TO C/O ITCHING THAT WAS MEDICATED PER EMAR. NO ACUTE CHANGES THIS SHIFT. PLAN FOR D/C TOMORROW AT 0900. CALL LIGHT WITHIN REACH AND BED ALARM ON.
[2024-10-17 20:11] VITALS: BP 117/60
--- NOTE | 2024-10-18 05:14 | NUR ---
SHIFT SUMMARY NO ACUTE CHANGES OR EVENTS THIS SHIFT. PATIENT IS MISSING A COLORFUL SLEEVE THAT GOES OVER HIS BRACE FOR HIS RIGHT FOOT-PATIENT REPORTS HE USED IT DURING THE DAY ON 10/17/24 TO WALK. THIS RN AND WALL CRANE OPERATOR LINDA LOOKED THROUHG PATIENTS ROOM BUT DID NOT FIND ITEM-WILL TALK TO DAYSHIFT IN REGARDS TO MISSING ITEM. PATIENT IN CHAIR AND BED T/O NIGHT WITH CHAIR/BED ALARM ON FOR SAFETY. ALARMS ON, CALL LIGHT IN REACH. CARE IS ONGOING.
[2024-10-18 07:32] VITALS: BP 130/64
--- NOTE | 2024-10-18 10:22 | NUR ---
DISCHARE NOTE PT DISHCARED TO [facility] AT APPROX 0925. PT A&OX2, VSS, AMB W/ ASSIST, TOLERATING PO, VOIDING, AND DENIED PAIN. BELONGINGS WERE RETURNED AND PT ESCOURTED OUT VIA W/C BY PRASHANTH AGUILAR. PT'S FRIEND LISA TO TRANSPORT PT AND PRESENT DURING D/C. D/C PAPERWORK FAXED TO [facility] BY CARE COORDINATION.
--- NOTE | 2024-10-18 10:51 | NUR ---
MET WITH PATIENT AND LISA TO FILL OUT A POLST FORM. REVIEWED THE OPTIONS BETWEEN DNR AND FULL CODE. DNR WAS SELSECTED. REVIEWED MEDICAL INTERVENTION OPTION. LIMITED INTERVENTIONS WAS SELECTED. SIGNED BY PROVIDER. AND SENT TO MEDICAL RECORDS AND OR POLST REGISTRY.
== END 2024-10-18 09:44 | disposition home or self-care (01) | DRG 92 ==
LOC: ER 21:31 → MEDS 10-10 02:11 → ERHOLD 10-10 02:11 → PCU 10-10 02:11 → MEDS 10-11 23:00 → ENPENDDIS 10-17 15:28 → MEDS 10-18 09:44
PROVIDERS: Student in an Organized Health Care Education/Training Program; ADMIT Internal Medicine
DX: G92.8 Other toxic encephalopathy (principal); I24.89 Other forms of acute ischemic heart disease; G30.9 Alzheimer's disease, unspecified; F02.C0 Dementia in other diseases classified elsewhere, severe, without behavioral disturbance, psychotic disturbance, mood disturbance, and anxiety; F01.C0 Vascular dementia, severe, without behavioral disturbance, psychotic disturbance, mood disturbance, and anxiety; N18.31 Chronic kidney disease, stage 3a; Z66 Do not resuscitate; D45 Polycythemia vera; R82.71 Bacteriuria; Z91.81 History of falling; Z86.73 Personal history of transient ischemic attack (TIA), and cerebral infarction without residual deficits; Z88.2 Allergy status to sulfonamides; Z79.82 Long term (current) use of aspirin; Z79.891 Long term (current) use of opiate analgesic
CPT/HCPCS: 36415; 70450; 80048; 80053; 80320; 81001; 82947; 83735; 83880; 84100; 84443; 84484; 85025; 85651; 86140; 87086; 93005; 93010; 94760; 96360; 97110; 97116; 97162; 97165; 97530; 97535; 99285-25; A9270; J0696; J1650; J7030; J7120

== ENCOUNTER 2024-11-06 12:24 | Inpatient (IN) | payer OTHER ==
[~2024-11-06] VITALS: Ht 177.8 cm; Wt 50.6 kg
[~2024-11-06 12:24] MED LIST changes: +ATOR80 PO; +Aspir 8181 MG PO
[2024-11-06 13:48] LABS: BASOPHILS ABSOLUTE AUTO 0.38 K/mm3 (0.00-0.23); BASOPHILS PERCENT AUTO 1 % (0-2); EOSINOPHILS ABSOLUTE AUTO 0.38 K/mm3 (0.00-0.68); EOSINOPHILS PERCENT AUTO 1 % (0-6); IMMATURE GRAN ABSOLUTE AUTO 0.33 K/mm3 (0.00-0.10); IMMATURE GRAN PERCENT AUTO 1 % (0-1); LYMPHOCYTES ABSOLUTE AUTO 1.38 K/mm3 (0.84-5.20); LYMPHOCYTES PERCENT AUTO 5 % (21-46); MONOCYTES ABSOLUTE AUTO 1.19 K/mm3 (0.16-1.47); MONOCYTES PERCENT AUTO 4 % (4-13); Mean Platelet Volume 9.1 fL (9.1-12.4); NEUTROPHILS ABSOLUTE AUTO 25.49 K/mm3 (1.96-9.15); NEUTROPHILS PERCENT AUTO 88 % (41-73); NRBC ABSOLUTE 0.11 K/mm3 (0.00-0.02); NRBC Auto 0.4 /100 WBC (0.0-0.2); White Blood Cell Count 29.15 K/mm3 (4.00-11.30)
[2024-11-06 14:08] LABS: CORONAVIRUS COVID-19 AG Negative (NEGATIVE); INFLUENZA A AG Negative (NEGATIVE); INFLUENZA B AG Negative (NEGATIVE)
[2024-11-06 14:13] LABS: Hematocrit 48.1 % (37.0-53.0); Mean Corpuscular HGB 16.1 pg (26.0-34.0); Mean Corpuscular Volume 60 fL (80-100); RDW Coefficient Variation 27.3 % (11.7-14.2); RDW Standard Deviation 50.6 fL (35.1-46.3); Red Blood Cell Count 8.09 M/mm3 (4.30-5.90)
[2024-11-06 14:15] LABS: Platelet Count 2400 K/mm3 (150-400)
[2024-11-06 14:19] LABS: Albumin/Globulin Ratio 0.9 (0.8-1.8); Bilirubin, Total 0.9 mg/dL (0.1-1.0); Bun/Creatinine Ratio 25.8 (12.0-20.0); Calcium, Blood 9.8 mg/dL (8.5-10.1); Creatinine, Blood 1.28 mg/dL (0.60-1.20); Globulin, Blood 3.3 g/dL (2.2-4.0); Potassium, Blood 4.3 mmol/L (3.5-5.5); Total Protein, Blood 6.3 g/dL (6.4-8.2)
[2024-11-06] MEDS ORDERED: Lactated Ringer's 1,000 ML IV ONE (14:50)
[2024-11-06] MEDS ORDERED: Erythromycin 0.5% Opth Oint 3.5 gm BOTHEYES SCH (16:00)
[2024-11-06] MEDS ORDERED: TraZODone HCl 50 MG Tab PO PRN (16:15)
[2024-11-06] MEDS ORDERED: Bisacodyl 10 MG Supp PR PRN (16:15)
[2024-11-06] MEDS ORDERED: FLU VACC TS2024-25(6MOS UP)/PF 45 MCG/0.5 ML SYRINGE IM SCH (16:15)
[2024-11-06] MEDS ORDERED: Magnesium Hydroxide Conc 10 ML UDC PO PRN (16:15)
[2024-11-06] MEDS ORDERED: Ondansetron 4 MG TAB PO PRN (16:15)
[2024-11-06] MEDS ORDERED: NS 1,000 ML IV SCH (16:20)
[2024-11-06] MEDS ORDERED: Ipratropium/Albuterol SulF 2.5-0.5MG/3 ML Amp INH PRN (16:20)
[2024-11-06] MEDS ORDERED: Eucalypt/Men/Camp/Turp/Pet,WH 50 gm TOP SCH (18:00)
[2024-11-06] MEDS ORDERED: CefTRIAXone Sodium 2,000 MG in NS 100 ML IV SCH (18:00)
[2024-11-06] MEDS ORDERED: ACET325 PO (19:04)
[2024-11-06 19:24] VITALS: BP 130/69
[2024-11-06] MEDS ORDERED: Lactobacil 2-S.Thermo-Bifido 1 1 Cap PO SCH (21:00)
[2024-11-06] MEDS ORDERED: Famotidine 20 MG Tab PO SCH (21:00)
--- NOTE | 2024-11-07 01:26 | NUR ---
0114-[facility] KENDAL CONWAY NOTIFIED THIS RN THAT PATIENT HAD AN 8 BEAT RUN OF BIGEMINY. THIS RN WENT INTO PATIENTS ROOM TO ASSESS PATIENT. PATIENT RESTING-THIS RN WOKE UP PATIENT-PATIENT DENIED ANY FEELINGS OF FLUTTERING, JUMPING OR POINDING HEART BEAT. 0126 DR. OLEARY NOTIFIED OF PATIENTS 8 BEAT RUN OF BIGEMINY AND PATIENT IS ASYMPTMATIC. NO NEW ORDERS OR CHANGES MADE AT THIS TIME. TO CONTINUE TO MONITOR CARDIAC FUNCTION WITH TELEMETRY.
[2024-11-07 02:32] VITALS: BP 116/61
--- NOTE | 2024-11-07 04:37 | NUR ---
SHIFT SUMMARY. PATIENT IS ALERT TO SELF AND PERSON-HX OF DEMENTIA-PATIENT HAS CONFUSION AT BASELINE. PATIENT NEEDS CONSTANT REMINDERS NOT TO TOUCH EYES. PATIENT IS IMPULSIVE AT TIMES WHEN HE NEEDS TO GO TO THE BATHROOM BUT IS EASILY REDIRECTABLE. PATIENT HAS TELE ON. PATIENT PULLED IV THIS SHIFT-NEW IV PLACED AND WRAPPED LOOSE WITH COBAN TO PROTECT IV. PATIENT HAS A HARSH PRODUCTIVE COUGH-PATIENT SPITTING UP THICK, CLEAR TO WHITE FLEM. PATIENT CAME INTO HOSPITAL FROM [facility]. PATIENTS TROPS ELEVATED-LABS TO CHECK TROPS THIS MORNING WITH A POSIBILITY OF A HEPARIN DRIP PER CRITICAL VALUE DOCUMENTATION. PATIENT IS UP IN CHAIR AT THIS TIME. SCD'S NOT APPLIED D/T PATIENTS IMPULSIVENESS AND AN INCREASE FOR FALLS. CHAIR IS LOCKED WITH BED ALARM IN PLACE AND ON. CALL LIGHT IN REACH. CARE IS ONGOING.
[2024-11-07 06:12] LABS: BASOPHILS ABSOLUTE AUTO 0.31 K/mm3 (0.00-0.23); BASOPHILS PERCENT AUTO 1 % (0-2); EOSINOPHILS ABSOLUTE AUTO 0.47 K/mm3 (0.00-0.68); EOSINOPHILS PERCENT AUTO 2 % (0-6); Hemoglobin 12.3 g/dL (13.5-17.5); IMMATURE GRAN ABSOLUTE AUTO 0.36 K/mm3 (0.00-0.10); IMMATURE GRAN PERCENT AUTO 1 % (0-1); LYMPHOCYTES ABSOLUTE AUTO 1.11 K/mm3 (0.84-5.20); LYMPHOCYTES PERCENT AUTO 4 % (21-46); MONOCYTES ABSOLUTE AUTO 1.08 K/mm3 (0.16-1.47); MONOCYTES PERCENT AUTO 4 % (4-13); Mean Platelet Volume 8.9 fL (9.1-12.4); NEUTROPHILS ABSOLUTE AUTO 22.78 K/mm3 (1.96-9.15); NEUTROPHILS PERCENT AUTO 87 % (41-73); NRBC ABSOLUTE 0.14 K/mm3 (0.00-0.02); NRBC Auto 0.5 /100 WBC (0.0-0.2); White Blood Cell Count 26.11 K/mm3 (4.00-11.30)
[2024-11-07 06:19] LABS: Hematocrit 46.5 % (37.0-53.0); Mean Corpuscular HGB 15.9 pg (26.0-34.0); Mean Corpuscular HGB Conc 26.5 g/dL (31.5-36.5); Mean Corpuscular Volume 60 fL (80-100); RDW Coefficient Variation 27.3 % (11.7-14.2); RDW Standard Deviation 51.7 fL (35.1-46.3); Red Blood Cell Count 7.73 M/mm3 (4.30-5.90)
[2024-11-07 06:20] LABS: Platelet Count 2185 K/mm3 (150-400)
[2024-11-07 07:02] LABS: Magnesium, Blood 2.2 mg/dL (1.6-2.4)
[2024-11-07 07:17] LABS: Albumin, Blood 2.6 g/dL (3.4-5.0); Albumin/Globulin Ratio 0.8 (0.8-1.8); Bilirubin, Total 0.7 mg/dL (0.1-1.0); Bun/Creatinine Ratio 21.6 (12.0-20.0); Calcium, Blood 8.9 mg/dL (8.5-10.1); Creatinine, Blood 1.16 mg/dL (0.60-1.20); Globulin, Blood 3.1 g/dL (2.2-4.0); Total Protein, Blood 5.7 g/dL (6.4-8.2)
[2024-11-07 07:42] VITALS: BP 115/69
[2024-11-07 08:18] LABS: Anti-Xa UFH, PHA Monitoring <0.10 IU/mL; International Normalized Ratio 1.17; Prothrombin Time Results 12.4 Sec (9.7-11.5)
[2024-11-07] MEDS ORDERED: Heparin Sodium,Porcine/0.5 NS 500 ML IV SCH (08:50)
[2024-11-07] MEDS ORDERED: Heparin Sodium 5000 Units/ML 1ML MDV IV ONE ×2 (08:50→17:05)
[2024-11-07] MEDS ORDERED: Aspirin 81 MG Chew PO SCH (09:00)
[2024-11-07] MEDS ORDERED: Loratadine 10 MG Tab PO SCH (09:00)
[2024-11-07] MEDS ORDERED: Fluticasone 0.05% Nasal Spray SCH (09:00)
[2024-11-07] MEDS ORDERED: Enoxaparin 40 MG/0.4 ML SYR SC SCH (09:00)
--- NOTE | 2024-11-07 12:02 | NUR ---
MD CONTACTED: THIS RN CALLED MD BURNETT REGARDING GOALS OF CARE TO VERIFY PATIENT WAS PCU APPRORIATE. STATED AT THIS TIME CARDIOLOGY DOES NOT WANT TO DO A CATH SO AT THIS TIME NO CHANGE IS NEEDED.
[2024-11-07 15:02] VITALS: BP 116/75
--- NOTE | 2024-11-07 15:55 | NUR ---
SHIFT SUMMARY PT SITTING UP IN CHAIR AT START OF SHIFT, DURING SHIFT REPORT. PT IS VERY [place]. PT ADMITTED ON NOC SHIFT FOR POLYCYTHEMIA. TROPONINS ELEVATED AND HAVE CONTINUED TO INCREASE; SEE CHART. DR BURNETT NOTIFIED; NEW ORDERS PLACED. HEPARIN DRIP STARTED AND BOLUS GIVEN. ATTEMPTED TO TRANSFER TO PCU; ORDER STILL ON CHART. ECHO DONE IN AND CARDIOLOGY CONSULTED. PT REMAINS ASYMPTOMATIC. PT UP TO BTHRM NEEDED WITH 1P SBA USING FWW. PT NEEDING ASSITANCE WITH IV PUMP AND LINES. SEEMA CALLED TO GET UPDATE ON PT; GIVEN. IVF'S INFUSING PER EMAR; SECOND BAG INFUSING. PT WITH EYE INFECTION; ABX OINTMENT PLACED PER EMAR WITH SOME IMPROVEMENT. NO C/O PAIN. DENIES FURTHER NEEDS AT THIS TIME. CALL LT IN REACH. BED AND CHAIR ALARMS USED FOR SAFETY.
[2024-11-07] MEDS ORDERED: Dose Adjust by Pharmacy XX STA (17:01)
[2024-11-07 20:13] VITALS: BP 122/68
[2024-11-08 00:26] LABS: Anti-Xa UFH, PHA Monitoring <0.10 IU/mL
[2024-11-08] MEDS ORDERED: Dose Adjust by Pharmacy XX STA ×3 (01:14→16:18)
[2024-11-08] MEDS ORDERED: Heparin Sodium 5000 Units/ML 1ML MDV IV ONE ×3 (01:15→16:20)
[2024-11-08 04:57] VITALS: BP 137/73
--- NOTE | 2024-11-08 05:17 | NUR ---
SHIFT [facility] PATIENT HAD NO ACUTE CHANGES. [facility] NURSE DR SEE IN TO SEE PATIENT AND PLACED ORDERS AND GAVE VERBAL LAB ORDERS AND MORNING EKG. AXOX 2, HX DEMENTIA, AND ONE ASSIST W/FWW TO BSC. [place]. PIV INTACT. HEPARIN INFUSING MANAGED BY PHARMACY. TROPONINS TRENDING DOWN. DENIES CHEST PAIN, SOB, AND N/V. VSS/AFEBRILE. SLEPT ON/OFF. CALL LIGHT IN REACH. BED IN LOWEST POSITION. WILL CONTINUE TO MONITOR UNTIL DAY SHIFT NURSE ASSUMES CARE.
[2024-11-08 06:18] LABS: BASOPHILS ABSOLUTE AUTO 0.38 K/mm3 (0.00-0.23); BASOPHILS PERCENT AUTO 1 % (0-2); EOSINOPHILS ABSOLUTE AUTO 0.79 K/mm3 (0.00-0.68); EOSINOPHILS PERCENT AUTO 3 % (0-6); Hemoglobin 12.6 g/dL (13.5-17.5); IMMATURE GRAN ABSOLUTE AUTO 0.88 K/mm3 (0.00-0.10); IMMATURE GRAN PERCENT AUTO 3 % (0-1); LYMPHOCYTES PERCENT AUTO 5 % (21-46); MONOCYTES ABSOLUTE AUTO 1.05 K/mm3 (0.16-1.47); MONOCYTES PERCENT AUTO 4 % (4-13); Mean Platelet Volume 8.9 fL (9.1-12.4); NEUTROPHILS ABSOLUTE AUTO 25.79 K/mm3 (1.96-9.15); NEUTROPHILS PERCENT AUTO 85 % (41-73); NRBC ABSOLUTE 0.18 K/mm3 (0.00-0.02); NRBC Auto 0.6 /100 WBC (0.0-0.2); White Blood Cell Count 30.39 K/mm3 (4.00-11.30)
[2024-11-08 06:44] LABS: Albumin, Blood 2.7 g/dL (3.4-5.0); Albumin/Globulin Ratio 0.8 (0.8-1.8); Bilirubin, Total 0.5 mg/dL (0.1-1.0); Bun/Creatinine Ratio 18.6 (12.0-20.0); C-REACTIVE PROTEIN, EXT RANGE 4.24 mg/dL (0.000-0.300); Creatinine, Blood 1.18 mg/dL (0.60-1.20); Globulin, Blood 3.2 g/dL (2.2-4.0); Magnesium, Blood 2.2 mg/dL (1.6-2.4); Phosphorus, Blood 3.2 mg/dL (2.5-4.9); Potassium, Blood 3.9 mmol/L (3.5-5.5); Total Protein, Blood 5.9 g/dL (6.4-8.2)
[2024-11-08 06:51] LABS: Hematocrit 48.4 % (37.0-53.0); Mean Corpuscular HGB 15.9 pg (26.0-34.0); Mean Corpuscular Volume 61 fL (80-100); RDW Coefficient Variation 27.5 % (11.7-14.2); RDW Standard Deviation 53.4 fL (35.1-46.3); Red Blood Cell Count 7.91 M/mm3 (4.30-5.90)
[2024-11-08 06:52] LABS: Platelet Count 2224 K/mm3 (150-400)
[2024-11-08 07:48] VITALS: BP 126/67
--- NOTE | 2024-11-08 08:43 | NUR ---
DR BURNETT NOTIFIED OF LABS, PLATELETT, TROP. AND CURRENT EKG. NO NEW ORDERS.
[2024-11-08] MEDS ORDERED: Metoprolol Succinate 25 MG TABCR PO SCH (09:00)
[2024-11-08] MEDS ORDERED: Atorvastatin 40 MG Tab PO SCH (09:00)
[2024-11-08 15:56] VITALS: BP 127/63
--- NOTE | 2024-11-08 17:30 | NUR ---
PT ON HEPARIN DRIP. TROP ELEVATED AND SLOWLY TRENDING DOWN. PLATELETS CONTINUE TO BE HIGH, BUT DOWN OVERALL. HEPARIN DRIP INCREASED TWO TIMES TODAY ALONG WITH BOLUS'. VSS. NO OTHER NEW CONCERNS NOTED. BED INLOW POSITION, CALL LITE IN REACH, BED ALARM ON FOR SAFETY
[2024-11-08 19:14] VITALS: BP 128/66
[2024-11-09] MEDS ORDERED: Clarify Drug Order XX ONE (00:10)
--- NOTE | 2024-11-09 03:14 | NUR ---
JUNIOR ACCOUNTANT SUMMARY VSS. LUNG SOUNDS DIMINISHED. SPENT MOST OF EVENING IN RECLINER, BUT AFTER SOME COAXING, WAS ASSISTED TO BED WITH HOB ELEVATED. HEPARIN DRIP INFUSING - CURRENTLY AT 32.5 ML/HR - SEE DEC FOR DETAILS. ASYMPTOMATIC. MED TELE SR AT 100. REQUESTED AND RECEIVED EYE MEDS AND VICKS FOR CHEST/RESPIRATIONS. HAS BEEN RESTING QUIETLY WITH FEW INTERRUPTIONS SINCE. CONTINUES ON CONTACT ISOLATION. CALL LIGHT IN REACH, RAILS UP X 2 AND BED IN LOW POSITION FOR SAFETY. WILL CONTINUE TO MONITOR.
[2024-11-09 04:58] VITALS: BP 121/66
[2024-11-09 05:12] LABS: BASOPHILS ABSOLUTE AUTO 0.47 K/mm3 (0.00-0.23); BASOPHILS PERCENT AUTO 1 % (0-2); EOSINOPHILS ABSOLUTE AUTO 0.88 K/mm3 (0.00-0.68); EOSINOPHILS PERCENT AUTO 3 % (0-6); Hemoglobin 12.5 g/dL (13.5-17.5); IMMATURE GRAN ABSOLUTE AUTO 1.22 K/mm3 (0.00-0.10); IMMATURE GRAN PERCENT AUTO 4 % (0-1); LYMPHOCYTES ABSOLUTE AUTO 2.04 K/mm3 (0.84-5.20); LYMPHOCYTES PERCENT AUTO 6 % (21-46); MONOCYTES ABSOLUTE AUTO 1.09 K/mm3 (0.16-1.47); MONOCYTES PERCENT AUTO 3 % (4-13); Mean Platelet Volume 8.9 fL (9.1-12.4); NEUTROPHILS ABSOLUTE AUTO 27.02 K/mm3 (1.96-9.15); NEUTROPHILS PERCENT AUTO 83 % (41-73); NRBC Auto 0.9 /100 WBC (0.0-0.2); White Blood Cell Count 32.72 K/mm3 (4.00-11.30)
[2024-11-09 05:20] LABS: Hematocrit 48.2 % (37.0-53.0); Mean Corpuscular HGB 15.9 pg (26.0-34.0); Mean Corpuscular HGB Conc 25.9 g/dL (31.5-36.5); Mean Corpuscular Volume 61 fL (80-100); RDW Coefficient Variation 27.7 % (11.7-14.2); RDW Standard Deviation 52.6 fL (35.1-46.3); Red Blood Cell Count 7.88 M/mm3 (4.30-5.90)
[2024-11-09 05:21] LABS: Platelet Count 2222 K/mm3 (150-400)
[2024-11-09] MEDS ORDERED: Dose Adjust by Pharmacy XX STA (05:29)
[2024-11-09] MEDS ORDERED: Heparin Sodium 5000 Units/ML 1ML MDV IV ONE (05:30)
[2024-11-09 06:04] LABS: Magnesium, Blood 2.2 mg/dL (1.6-2.4)
[2024-11-09 06:07] LABS: Albumin, Blood 2.5 g/dL (3.4-5.0); Albumin/Globulin Ratio 0.8 (0.8-1.8); Bilirubin, Total 0.7 mg/dL (0.1-1.0); Bun/Creatinine Ratio 19.1 (12.0-20.0); Calcium, Blood 8.9 mg/dL (8.5-10.1); Creatinine, Blood 1.1 mg/dL (0.60-1.20); Globulin, Blood 3.1 g/dL (2.2-4.0); Phosphorus, Blood 3.6 mg/dL (2.5-4.9); Potassium, Blood 3.7 mmol/L (3.5-5.5); Total Protein, Blood 5.6 g/dL (6.4-8.2)
[2024-11-09 07:12] VITALS: BP 126/82
--- NOTE | 2024-11-09 08:49 | NUR ---
HEPARIN DRIP STOPPED AT 0847.
[2024-11-09] MEDS ORDERED: Clopidogrel Bisulfate 75 MG Tab PO SCH (09:00)
[2024-11-09] MEDS ORDERED: Furosemide 10 MG / ML 2ML Vial IV ONE (09:00)
[2024-11-09 15:12] VITALS: BP 109/55
--- NOTE | 2024-11-09 17:13 | NUR ---
RECEIVED CALL FROM TELEMETRY REGARDING 5 RUN VTACH AT ATOUND 1417. DR BURNETT CALLED AND ALERTED. PT SHOWS NO CHANGES IN PT CONDITION. NO COMPLAINTS OF CP/PRESSURE. VSS.
--- NOTE | 2024-11-09 17:47 | NUR ---
SHIFT SUMMARY PT A&O TO SELF AND PLACE. PT VSS, NO COMPLAINTS OF CP/PRESSURE OR SOB. PT ON CONTINUOUS TELEMETRY AND HAD 1 INSTANCE OF 5 BEAT VTACH, AND SOME SHORT RUNS OF PVCS. NO CHANGE IN PT CONDITION. PT IS RESTING QUIETLY IN CHAIR W/ EYES CLOSED. PT RECEIVED SCHEDULED MEDICATIONS. CAPS REPLACED. NO ACUTE EVENTS NOTED AT THIS TIME. PT REPOSITIONED Q2HRS. FALL PRECAUTIONS IN PLACE AND CALL LIGHT IN REACH.
[2024-11-09 22:56] VITALS: BP 107/54
[2024-11-10 02:57] VITALS: BP 139/75
[2024-11-10] MEDS ORDERED: Benzonatate 100 MG Cap PO PRN (04:05)
--- NOTE | 2024-11-10 04:24 | NUR ---
SIFTER AND MILLER SUMMARY VSS. MED TELE SR IN THE 70'S. ALERT AND ORIENTED TO QUESTIONS ASKED. LUNG SOUNDS DIMINISHED TO AUSCULTATION. SPENT MOST OF EVENING IN RECLINER, NOTED BLE SWELLING, FEET WERE ELEVATED. EVENTUALLY WAS ENCOURAGED TO GO TO BED, ASSISTED TO BED. HAS BEEN RESTING QUIETLY WITH OCCASIONAL INTERRUPTION - VOICED SOUGHING AND THROAT DISCOMFORT. NOTIFIED AND FLORI DE PAZ ORDERED - SEE DEC. S ON CONTACT ISOLATION PRECAUTIONS. ABLE TO REPOSITION SELF IN BED FOR COMFORT/SKIN MAINTAINENCE. CALL LIGHT IN REACH, RAILS UP X 2 AND BED IN LOW POSITION FOR SAFETY. WILL CONT TO MONITOR
[2024-11-10 07:44] VITALS: BP 129/63
[2024-11-10] MEDS ORDERED: Enoxaparin 40 MG/0.4 ML SYR SC SCH (09:00)
[2024-11-10 14:58] VITALS: BP 104/50
--- NOTE | 2024-11-10 16:30 | NUR ---
SHIFT SUMMARY PT A&OX3 WITH CONFUSION. PT ADMITTED DUE TO POLYCYTHEMIA VERA AQUIRED. PT REPORTS NO PAIN. PT IS A SBA WITH FWW. PT UP IN CHAIR, CHAIR ALARM ON. PT GETS UP WITHOUT CALLING. PT EATS ADEQUATE. PT ON ROOM AIR. PT RIECIVING ERYTHROYCIN OINTMENT IN BOTH EYES. PT GETTING VAPOR RUB ON CHEST SCHEDULED.PT CONTINENT, AND USES TOILET. PT HAS OCASSIONAL COUGH, REPORTS NO CHEST PAIN DISCOMFORT. SPO2 IS 94%. BLOOD PRESSURE IS 104/50. CALL LIGHT IN REACH. WAITING FOR MEMORY CARE PLACEMENT.
[2024-11-10] MEDS ORDERED: NS 250 ML IV PRN (17:20)
[2024-11-10 22:23] VITALS: BP 107/81
[2024-11-11 02:54] VITALS: BP 119/65
[2024-11-11 06:18] LABS: Hemoglobin 12.6 g/dL (13.5-17.5); Mean Platelet Volume 8.9 fL (9.1-12.4); NRBC ABSOLUTE 0.28 K/mm3 (0.00-0.02); NRBC Auto 0.9 /100 WBC (0.0-0.2)
[2024-11-11 06:21] LABS: Hematocrit 47.9 % (37.0-53.0); Mean Corpuscular HGB 15.8 pg (26.0-34.0); Mean Corpuscular HGB Conc 26.3 g/dL (31.5-36.5); Mean Corpuscular Volume 60 fL (80-100); RDW Coefficient Variation 27.7 % (11.7-14.2); RDW Standard Deviation 52.5 fL (35.1-46.3); Red Blood Cell Count 7.98 M/mm3 (4.30-5.90)
[2024-11-11 06:22] LABS: Platelet Count 2745 K/mm3 (150-400)
--- NOTE | 2024-11-11 06:22 | NUR ---
CRITICAL PLATELET COUNT READ 1285.
--- NOTE | 2024-11-11 06:40 | NUR ---
SHIFT SUMMARY PT A&O TO SELF, SITUATION, AND PLACE. CONFUSED, HX OF DEMENTIA. PT RECEIVED SCHEDULED AND PRN MEDICATIONS. PT CONTINENT TO THE BR. PT SPENT HALF OF SHIFT IN BED, BEFORE MOVING TO RECLINER FOR REMAINDER OF SHIFT. VSS, NO COMPLAINTS OF CP/PRESSURE OR SOB. PT REPOSITIONED INDEPENDENTLY. FALL PRECAUTIONS IN PLACE AND CALL LIGHT IN REACH. NO ACUTE EVENTS AT THIS TIME.
[2024-11-11 06:53] LABS: Bun/Creatinine Ratio 17.6 (12.0-20.0); Creatinine, Blood 1.02 mg/dL (0.60-1.20); Magnesium, Blood 2.2 mg/dL (1.6-2.4); Potassium, Blood 4.1 mmol/L (3.5-5.5)
[2024-11-11 07:11] VITALS: BP 119/53
[2024-11-11] MEDS ORDERED: CLOP75 PO (12:47)
[2024-11-11] MEDS ORDERED: [UNRECOGNIZED DRUG - OTHER] TOP (12:47)
[2024-11-11] MEDS ORDERED: ALLERCLEAR10 MG PO (12:48)
[2024-11-11] MEDS ORDERED: ERYT.5TO BOTHEYES (12:48)
[2024-11-11] MEDS ORDERED: METO25ER PO (12:49)
[2024-11-11] MEDS ORDERED: ALBU90OI INH (12:49)
[2024-11-11] MEDS ORDERED: CEPH500 PO (12:50)
--- NOTE | 2024-11-11 14:30 | NUR ---
DISCHARGE SUMMARY: PT DISCHARGED TO [facility] VIA [place] [facility]SP[facility]. PT BELONGINGS PACKED UP AND SENT WITH PT. PT ASSISTED WITH GETTING DRESSED PRIOR TO LEAVING.
== END 2024-11-11 14:10 | disposition home health service (06) | DRG 193 ==
LOC: ER 12:24 → MEDS 16:12 → ENPENDDIS 11-11 11:22 → MEDS 11-11 14:10
PROVIDERS: Emergency Medicine; ADMIT Hospitalist
DX: J18.9 Pneumonia, unspecified organism (principal); I21.4 Non-ST elevation (NSTEMI) myocardial infarction; F03.90 Unspecified dementia, unspecified severity, without behavioral disturbance, psychotic disturbance, mood disturbance, and anxiety; Z66 Do not resuscitate; D75.1 Secondary polycythemia; H10.9 Unspecified conjunctivitis; I12.9 Hypertensive chronic kidney disease with stage 1 through stage 4 chronic kidney disease, or unspecified chronic kidney disease; N18.30 Chronic kidney disease, stage 3 unspecified; D46.9 Myelodysplastic syndrome, unspecified; Z86.73 Personal history of transient ischemic attack (TIA), and cerebral infarction without residual deficits; Z79.82 Long term (current) use of aspirin; Z79.899 Other long term (current) drug therapy; Z88.2 Allergy status to sulfonamides; I35.0 Nonrheumatic aortic (valve) stenosis
CPT/HCPCS: 36415; 71046; 80048; 80053; 82947; 83735; 83880; 84100; 84484; 85025; 85027; 85520; 85610; 85730; 86140; 87428-QW; 93005; 93010; 93306; 94640; 94664; 94760; 97165; 97535; 99285-25; A9270; J0696; J1644; J1650; J1940; J7030; J7050; J7120

== ENCOUNTER 2025-01-09 22:09 | Inpatient (IN) | payer OTHER ==
[~2025-01-09] VITALS: Ht 170.2 cm; Wt 70.5 kg
[~2025-01-09 22:09] MED LIST changes: +ACET325 PO; +ALBU90OI INH; +ALLERCLEAR10 MG PO; +CEPH500 PO; +CLOP75 PO; +ERYT.5TO BOTHEYES; +METO25ER PO; +[UNRECOGNIZED DRUG - OTHER] TOP
[2025-01-09 22:30] LABS: Hemoglobin 12.9 g/dL (13.5-17.5)
[2025-01-09 22:33] LABS: Hematocrit 46.5 % (37.0-53.0); Mean Corpuscular HGB 16.1 pg (26.0-34.0); Mean Corpuscular HGB Conc 27.7 g/dL (31.5-36.5); Mean Corpuscular Volume 58 fL (80-100); NRBC ABSOLUTE 0.14 K/mm3 (0.00-0.02); NRBC Auto 0.4 /100 WBC (0.0-0.2); Platelet Count 2255 K/mm3 (150-400); RDW Coefficient Variation 27.9 % (11.7-14.2); RDW Standard Deviation 52.6 fL (35.1-46.3); White Blood Cell Count 35.86 K/mm3 (4.00-11.30)
[2025-01-09 22:59] LABS: BASOPHILS ABSOLUTE MAN 0.35 K/mm3 (0.00-0.23); BASOPHILS PERCENT MAN 1 % (0-2); EOSINOPHILS ABSOLUTE MAN 0.71 K/mm3 (0.00-0.68); EOSINOPHILS PERCENT MAN 2 % (0-6); LYMPHOCYTES % ATYPICAL MANUAL 2 % (0-0); LYMPHOCYTES ABSOLUTE MAN 5.73 K/mm3 (0.84-5.20); LYMPHOCYTES PERCENT MAN 14 % (21-46); MONOCYTES ABSOLUTE MAN 1.79 K/mm3 (0.16-1.47); MONOCYTES PERCENT MAN 5 % (4-13); NEUTROPHILS ABSOLUTE MAN 27.25 K/mm3 (1.96-9.15); SEG NEUTROPHILS PERCENT MAN 76 % (41-73); TOTAL CELLS COUNTED 100
[2025-01-09] MEDS ORDERED: Ketorolac Tromethamine 15mg Vial IV ONE (23:15)
[2025-01-09] MEDS ORDERED: Morphine Sulfate 4 MG/1 ML Injection IV ONE (23:15)
[2025-01-09 23:53] LABS: Albumin, Blood 3.6 g/dL (3.4-5.0); Albumin/Globulin Ratio 1.3 (0.8-1.8); Bilirubin, Total 0.7 mg/dL (0.1-1.0); Bun/Creatinine Ratio 16.3 (12.0-20.0); Calcium, Blood 9.3 mg/dL (8.5-10.1); Creatinine, Blood 1.23 mg/dL (0.60-1.20); Globulin, Blood 2.7 g/dL (2.2-4.0); Potassium, Blood 5.2 mmol/L (3.5-5.5); Total Protein, Blood 6.3 g/dL (6.4-8.2)
[2025-01-10] VITALS (17 sets, daily range): BP systolic 101–148; BP diastolic 43–81
[2025-01-10 00:01] LABS: International Normalized Ratio 1.16; Prothrombin Time Results 12.3 Sec (9.7-11.5)
[2025-01-10 00:52] LABS: Source, Urine Clean Catch
[2025-01-10 01:01] LABS: Appearance, Urine Clear (Clear); Bilirubin, Urine Neg (Neg); Blood, Urine 1+ (Neg); Color, Urine Yellow (P-Yellow); Glucose Qualitative, Urine Neg (Neg); Ketones, Urine Neg (Neg); Leukocyte Esterase, Urine Neg (Neg); Nitrite, Urine Neg (Neg); Protein, Urine Neg (Neg); Specific Gravity, Urine 1.015 (1.003-1.022); Urobilinogen, Urine NORM (Normal); pH, Urine 6.5 (5.0-8.0)
[2025-01-10 01:19] LABS: Bacteria Rare /hpf; Squamous Epithelial Cells Rare /hpf (Few); White Blood Cells, Urine 0-2 /hpf (0-5)
[2025-01-10] MEDS ORDERED: Ondansetron HCl 2 MG / ML 2ML Vial IV PRN (01:25)
[2025-01-10] MEDS ORDERED: FLU VACC TS2024-25(6MOS UP)/PF 45 MCG/0.5 ML SYRINGE IM ONE (01:25)
[2025-01-10] MEDS ORDERED: OxyCODONE HCL 5 MG TAB PO PRN (01:25)
[2025-01-10] MEDS ORDERED: Naloxone HCl 0.4MG / ML 1ML Vial IV PRN (01:25)
[2025-01-10] MEDS ORDERED: FentaNYL Citrate 50 MCG/ML 2 ML Injection IV PRN (01:30)
[2025-01-10] MEDS ORDERED: Acetaminophen 325 MG TABLET PO PRN (01:30)
[2025-01-10] MEDS ORDERED: Lactated Ringer's 1,000 ML IV SCH ×2 (02:00→11:55)
[2025-01-10 05:54] LABS: Hemoglobin 12.9 g/dL (13.5-17.5); Mean Platelet Volume 8.7 fL (9.1-12.4)
[2025-01-10 06:00] LABS: Hematocrit 47.2 % (37.0-53.0); Mean Corpuscular HGB 15.9 pg (26.0-34.0); Mean Corpuscular HGB Conc 27.3 g/dL (31.5-36.5); Mean Corpuscular Volume 58 fL (80-100); NRBC ABSOLUTE 0.11 K/mm3 (0.00-0.02); NRBC Auto 0.3 /100 WBC (0.0-0.2); RDW Coefficient Variation 27.2 % (11.7-14.2); RDW Standard Deviation 49.3 fL (35.1-46.3); White Blood Cell Count 42.25 K/mm3 (4.00-11.30)
[2025-01-10 06:03] LABS: Platelet Count 2518 K/mm3 (150-400)
--- NOTE | 2025-01-10 06:17 | NUR ---
Called answering serive for consult left for Dr. Jaci Pollard at 0616.
[2025-01-10 06:19] LABS: Albumin, Blood 3.6 g/dL (3.4-5.0); Albumin/Globulin Ratio 1.3 (0.8-1.8); Bilirubin, Total 0.9 mg/dL (0.1-1.0); Bun/Creatinine Ratio 19.6 (12.0-20.0); Creatinine, Blood 1.12 mg/dL (0.60-1.20); Globulin, Blood 2.7 g/dL (2.2-4.0); Magnesium, Blood 2.1 mg/dL (1.6-2.4); Total Protein, Blood 6.3 g/dL (6.4-8.2)
[2025-01-10 06:44] LABS: BASOPHILS PERCENT MAN 0 % (0-2); EOSINOPHILS ABSOLUTE MAN 0.84 K/mm3 (0.00-0.68); EOSINOPHILS PERCENT MAN 2 % (0-6); LYMPHOCYTES ABSOLUTE MAN 1.26 K/mm3 (0.84-5.20); LYMPHOCYTES PERCENT MAN 3 % (21-46); MONOCYTES ABSOLUTE MAN 0.42 K/mm3 (0.16-1.47); MONOCYTES PERCENT MAN 1 % (4-13); NEUTROPHILS ABSOLUTE MAN 39.71 K/mm3 (1.96-9.15); SEG NEUTROPHILS PERCENT MAN 94 % (41-73); TOTAL CELLS COUNTED 100
[2025-01-10] MEDS ORDERED: Docusate Sodium 100 MG Cap PO SCH (09:00)
--- NOTE | 2025-01-10 11:35 | NUR ---
PT TRANSFERED TO SURGERY FOR RIGHT HIP FRACTURE.
[2025-01-10] MEDS ORDERED: Bupivacaine 0.25% Epi 1:200000 30 ML Vial ONE (12:09)
--- NOTE | 2025-01-10 12:12 | NUR ---
PT TO PREOP FROM [facility] FLOOR WITH 20G IV IN R AC THAT IS LEAKING, HAS CRUSTED BLOOD NEAR AND AROUND INSERTION SITE. IV REMOVED, ANOTHER IV STARTED PREPROCEDURALLY IN DAY SURGERY. PT HAS CRUSTED BLOOD ON MOUTH/LIPS THAT APPEAR TO HAVE NOT BEEN CLEANED IN SOME TIME. PT CLEANED WITH WATER AND SPONGES IN DAY SURGERY, MOUTH INSPECTED. ONE SMALL OPEN SORE VISABLE IN LEFT CORNER OF PT'S MOUTH. ANESTHESIA NOTIFIED. PATIENTS' NURSE LICHA ACOSTA STATES "I HAVE NO IDEA" WHEN ASKED WHO HAS BEEN CONSENTING FOR PT GIVEN DEMENTIA DIAGNOSIS. CASH CONTROLLER IN [facility] RESEARCHED PT'S CHART, FOUND POA FOR PT FOR PAPERWORK PURPOSES.
[2025-01-10] MEDS ORDERED: Rocuronium Bromide 10 MG/ML 5ML Injection IV ONE (12:25)
[2025-01-10] MEDS ORDERED: Dexamethasone Sod Phos 10 MG/ML 1ML VIAL ONE (12:25)
[2025-01-10] MEDS ORDERED: Ondansetron HCl 2 MG / ML 2ML Vial ONE (12:25)
[2025-01-10] MEDS ORDERED: FentaNYL Citrate 50 MCG/ML 2 ML Injection ONE (12:26)
[2025-01-10] MEDS ORDERED: propofoL 20 ML IV ONE (12:26)
[2025-01-10] MEDS ORDERED: CeFAZolin Sodium 1000 mg Vial ONE ×2 (12:40)
[2025-01-10] MEDS ORDERED: Sugammadex Sodium 200 MG/2ML SDV (100 MG/ML) ONE (13:36)
--- NOTE | 2025-01-10 15:00 | NUR ---
PT BACK TO ROOM FROM SURGERY. ON 2L NC, SATS MAINTAINING 93-95% ON CONT PULSE OX. PT GRIMACING AND RESTLESS. MEDICATED FOR PAIN PER MAR. POST-OP VITAL INITIATED.
--- NOTE | 2025-01-10 18:46 | NUR ---
SHIFT SUMMARY PT IS A/OX3. SURGERY TO RIGHT HIP FRACTURE COMPLETED THIS AFTERNOON. POST-OP VITAL INITIATED. PT ON RA AT THIS TIME, SATS 93-94% ON CONT PULSE OX. LR RUNNING @ 75 ML/HR. PT TOLERATING SOFT AND BITE SIZED DIET.
[2025-01-11] VITALS (8 sets, daily range): BP systolic 85–106; BP diastolic 37–55
--- NOTE | 2025-01-11 05:11 | NUR ---
No acute changes overnight. Patient rested through the night. Patient denies chest pain, SOB, and N/V. Will continue to monitor umtil day shift resumes cares.
[2025-01-11 05:36] LABS: Hemoglobin 9.8 g/dL (13.5-17.5); Mean Platelet Volume 9.1 fL (9.1-12.4); NRBC ABSOLUTE 0.17 K/mm3 (0.00-0.02); NRBC Auto 0.4 /100 WBC (0.0-0.2)
[2025-01-11 05:39] LABS: Hematocrit 36.2 % (37.0-53.0); Mean Corpuscular HGB Conc 27.1 g/dL (31.5-36.5); Mean Corpuscular Volume 59 fL (80-100); RDW Coefficient Variation 26.5 % (11.7-14.2); RDW Standard Deviation 49.1 fL (35.1-46.3); Red Blood Cell Count 6.14 M/mm3 (4.30-5.90)
[2025-01-11 05:42] LABS: Platelet Count 2245 K/mm3 (150-400)
--- NOTE | 2025-01-11 05:57 | NUR ---
Patient's plt count 2245. Discussed with brim presser. not notified due to expected lab levels.
[2025-01-11 06:12] LABS: Calcium, Blood 8.5 mg/dL (8.5-10.1); Creatinine, Blood 1.4 mg/dL (0.60-1.20); Magnesium, Blood 2.1 mg/dL (1.6-2.4); Potassium, Blood 5.2 mmol/L (3.5-5.5)
--- NOTE | 2025-01-11 08:08 | NUR ---
BP LOWER 88/55 MAP 66, AND DECLINING. SLIGHTY TEMP. 99.7. WBC UP. LIGHT CRACKLES LOW RT. ON R.A. CALLED DR BURNETT. ORDERS PENDING 500 BOLUS AND CH XRAY
[2025-01-11] MEDS ORDERED: NS 500 ML IV SCH (08:10)
[2025-01-11] MEDS ORDERED: Heparin Sodium,Porcine 5,000 UNIT/0.5 ML SDV SC SCH (09:00)
[2025-01-11] MEDS ORDERED: Heparin Sodium 5000 Units/ML 1ML MDV SC SCH (09:00)
[2025-01-11] MEDS ORDERED: NS 1,000 ML IV ONE (12:00)
--- NOTE | 2025-01-11 14:30 | NUR ---
THERAPY IN ROOM, BP 94/37, MAP 56. CALLED DR BURNETT, FLUIDS ALREADY RUNNING. ADD MIDODRINE TO START NOW.
[2025-01-11] MEDS ORDERED: Midodrine 2.5 MG Tab PO SCH ×2 (14:56→18:00)
--- NOTE | 2025-01-11 19:13 | NUR ---
PT PLEASANT TODAY. DID MEDICATE FOR PAIN 3 TIMES TODAY, TYLENOL AND KIM. BP LOWER THIS AM. BOLUS AND CONT FLUIDS STARTED. MIDODRINE ADDED ALSO. BP BETTER, DID GET SOME THERAPY TODAY, BUT NOT GETTING UP R/T BP. NO OTHER CONCERNS NOTED. BED IN LOW POSITION, CALL LITE IN REACH, BED ALARM ON FOR SAFETY
[2025-01-12 03:41] VITALS: BP 147/74
--- NOTE | 2025-01-12 05:24 | NUR ---
No acute changes over night, Patient needs to work with PT and OT. Patient denies chest pain, SOB and N/V. Will continue to monitor until day shift resumes cares.
[2025-01-12 07:05] VITALS: BP 114/61
[2025-01-12] MEDS ORDERED: NS 250 ML IV SCH (08:05)
[2025-01-12 12:46] VITALS: BP 112/59
[2025-01-12 15:13] LABS: Source, Urine Clean Catch
--- NOTE | 2025-01-12 15:13 | NUR ---
PT PLEASANT COOP, BUT CONFUSED TODAY. DRESSING TO BE CHANGED SHORTLY PER SURGEON LUNGS CLEAR, RESP EASY, UNLABORED. MEDICATED X1 TODAY. WAS ABLE TO GET URINE SAMPLE TODAY. NO OTHER NEW CONCERNS NOTED. BED INL OW POSITION, CALL LITE IN REACH, BED ALARM ON FOR SAFETY
[2025-01-12 15:16] LABS: Bilirubin, Urine Neg (Neg); Blood, Urine Neg (Neg); Color, Urine Yellow (P-Yellow); Glucose Qualitative, Urine Neg (Neg); Ketones, Urine Neg (Neg); Leukocyte Esterase, Urine Neg (Neg); Nitrite, Urine Neg (Neg); Protein, Urine 1+ (Neg); Urobilinogen, Urine NORM (Normal)
[2025-01-12 15:20] VITALS: BP 105/66
[2025-01-12 15:22] LABS: Appearance, Urine Hazy (Clear); Bacteria Rare /hpf; Hyaline Casts 0-2 /lpf (0-2); Red Blood Cells, Urine 0-2 /hpf (0-2); Squamous Epithelial Cells Rare /hpf (Few); White Blood Cells, Urine 0-2 /hpf (0-5)
[2025-01-12 19:24] VITALS: BP 101/41
[2025-01-13 03:08] VITALS: BP 110/57
--- NOTE | 2025-01-13 04:46 | NUR ---
SHIFT SUMMARY: PT AOX2 KNOWS HES NOT AT HOME BECAUSE HE'S "SICK" BUT UNABLE TO EXPLAIN FURTHER. CONFUSED AND FORGETFUL. STATES HES IN PAIN BUT REFUSES MEDICATION AT TIMES. MEDICATED PER EMR PATIENT PERMITS. PT TOLERATING MEDICATIONS WELL. INCONTINENT, ATTENDS AND BEDDING CHANGED NEEDED. COOPERATIVE IN CARE, ALTHOUGH IT IS VERY PAINFUL. NO ACUTE EVENTS OVERNIGHT. PT IN BED RESTING, BED IN LOWEST POSITION, CALL LIGHT IN REACH. CONTINUING CARE.
[2025-01-13 05:34] LABS: Hemoglobin 8.9 g/dL (13.5-17.5); Mean Platelet Volume 8.9 fL (9.1-12.4); NRBC ABSOLUTE 0.12 K/mm3 (0.00-0.02); NRBC Auto 0.3 /100 WBC (0.0-0.2); White Blood Cell Count 34.77 K/mm3 (4.00-11.30)
[2025-01-13 05:43] LABS: Hematocrit 33.6 % (37.0-53.0); Mean Corpuscular HGB 15.9 pg (26.0-34.0); Mean Corpuscular HGB Conc 26.5 g/dL (31.5-36.5); Mean Corpuscular Volume 60 fL (80-100); RDW Coefficient Variation 26.3 % (11.7-14.2); RDW Standard Deviation 50.9 fL (35.1-46.3); Red Blood Cell Count 5.61 M/mm3 (4.30-5.90)
[2025-01-13 05:45] LABS: Platelet Count 2336 K/mm3 (150-400)
--- NOTE | 2025-01-13 05:49 | NUR ---
NURSING NOTE: CRITICAL HIGH PLATELET CALLED IN FROM LAB. SEE CRITICAL VALUE INTERVENTION FOR DETAILS.
[2025-01-13 06:06] LABS: Bun/Creatinine Ratio 25.7 (12.0-20.0); Calcium, Blood 8.6 mg/dL (8.5-10.1); Creatinine, Blood 1.13 mg/dL (0.60-1.20); Magnesium, Blood 2.2 mg/dL (1.6-2.4); Potassium, Blood 4.5 mmol/L (3.5-5.5)
[2025-01-13 07:04] VITALS: BP 107/70
[2025-01-13] MEDS ORDERED: Aspirin 81 MG Chew PO SCH (09:00)
[2025-01-13] MEDS ORDERED: Clopidogrel Bisulfate 75 MG Tab PO SCH (09:00)
[2025-01-13 13:13] VITALS: BP 100/47
--- NOTE | 2025-01-13 14:08 | NUR ---
THIS RN CONTACTED TANI AT [facility] WHERE PT RESIDES TO PROVIDE VERBAL REPORT PER CESAR MIRANDA REQUEST. REPORT GIVEN AND TANI VERBALIZED THAT PT NOT ABLE TO RETURN TODAY AND LIKELY ABLE TO RETURN TOMORROW IF ALL EQUIPMENT IS AVAIALBLE. THIS RN UPDATED RUBEN WHO WILL UPDATE PROVIDER. TANI PLANS TO COME BY IN THE MORNING ON 01/14/25 TO ASSESS PT.
[2025-01-13 15:00] VITALS: BP 122/49
--- NOTE | 2025-01-13 16:27 | NUR ---
SHIFT SUMMARY NO ACUTE CHANGES, PT A/O TO SELF WITH SOME INTERMITTENT CONFUSION. PT TREATED PER EMAR FOR PAIN - EFFECTIVE. PT NEEDS ENCOURAGING TO COMPLETE ROM EXERCISES AND AT LEAST DANGLE AT BEDSIDE. PT IN AGREEANCE TO COMPLETE ROM Q2H WITH HIGH FREQUENCY MILL OPERATOR AND RN. PT WORKED WITH PHYSICAL THERAPY TODAY. PT IS MOTIVATED TO RETURN TO BASELINE. GOOD APPETITE. REMAINS INCONTINENT OF BLADDER. FRANCISCA'S TO COME VISIT 01/14/25 TO ASSESS IF PT ELIGIBLE TO RETURN TO FACILITY. PT CURRENTLY RESTING IN HOSPITAL BED WITH BED IN LOWEST POSITION, CALL LIGHT WITHIN REACH. PT DOES NOT USE CALL LIGHT - BED ALARM ON.
[2025-01-13 18:04] VITALS: BP 103/55
[2025-01-13 19:42] VITALS: BP 101/50
--- NOTE | 2025-01-13 23:00 | NUR ---
nursing note: PT CHANGED AFTER INCONT VOID AND ROM EXERCISES DONE WITH AFFECTED LEG. PT WAS PRE MEDICATED BUT STILL VERBALIZED PAIN. PT CLEAN AND RESTING IN BED, BED IN LOWEST POSITION, CALL LIGHT IN REACH. CONTINUING CARE.
[2025-01-14] VITALS (7 sets, daily range): BP systolic 104–120; BP diastolic 38–61
--- NOTE | 2025-01-14 05:07 | NUR ---
SHIFT SUMMARY: PT AOX2 CONFUSED OF PLACE AND DATE. KNOWS HE IS "SICK" ENDORSES PAIN BUT REFUSES PAIN MEDICATIONS AT TIMES. INCONT, ATTENDS IN PLACE. PT COOPERATIVE IN CARE ALTHOUGH MOVEMENT AND TURNING IS VERY PAINFUL. DOES NOT MAKE NEEDS KNOWN, AND DOES NOT CALL APPROPRIATELY. SATTING WELL. NOT IMPULSIVE AND WILL STAY IN BED. ATTEMTPS TO MOVE LEG EVERY SO OFTEN OR WHEN INSTRUCTED SLOWLY. NO ACUTE EVENTS OVERNIGHT. PT SLEEPING IN BED, BED IN LOWEST POSTION, CALL LIGHT IN REACH. CONTINUING CARE.
[2025-01-14 06:02] LABS: Hemoglobin 8.8 g/dL (13.5-17.5); Mean Platelet Volume 9.2 fL (9.1-12.4); NRBC ABSOLUTE 0.15 K/mm3 (0.00-0.02); NRBC Auto 0.5 /100 WBC (0.0-0.2); White Blood Cell Count 32.88 K/mm3 (4.00-11.30)
[2025-01-14 06:19] LABS: Hematocrit 32.5 % (37.0-53.0); Mean Corpuscular HGB 16.3 pg (26.0-34.0); Mean Corpuscular HGB Conc 27.1 g/dL (31.5-36.5); Mean Corpuscular Volume 60 fL (80-100); RDW Coefficient Variation 27.2 % (11.7-14.2); RDW Standard Deviation 52.6 fL (35.1-46.3)
[2025-01-14 06:22] LABS: Platelet Count 2514 K/mm3 (150-400)
[2025-01-14 06:24] LABS: Bun/Creatinine Ratio 25.4 (12.0-20.0); Calcium, Blood 8.8 mg/dL (8.5-10.1); Creatinine, Blood 1.22 mg/dL (0.60-1.20); Magnesium, Blood 2.1 mg/dL (1.6-2.4); Phosphorus, Blood 3.3 mg/dL (2.5-4.9); Potassium, Blood 4.6 mmol/L (3.5-5.5)
--- NOTE | 2025-01-14 06:26 | NUR ---
NURSING NOTE: CRITICALLY HIGH VALUE PLT OF 2514, PT CONSISTENTLY HIGH, NOT BEING TREATED. CHARGE NURSE NOTIFIED.
[2025-01-14] MEDS ORDERED: Polyethylene Glycol 3350 17 gm PO PRN (10:55)
[2025-01-14] MEDS ORDERED: Lactulose 20 GM/30 ML UDC PO ONE (10:55)
--- NOTE | 2025-01-14 15:08 | NUR ---
PALLIATIVE CARE NOTE: CALLED BY CARE MANAGEMENT PT PAIN IS A CURRENT BARRIER TO DISCHARGE BACK TO [facility]. REVIEWED MEDICATION ADMINISTRATION. NOTED PT WAS GETTING TYLENOL AND OXYCODONE ON 01/11-01/12 FOR PAIN MANAGEMENT AND NO OTHER MEDICATIONS WERE GIVEN FOR PAIN. REASSESSMENT INDICATED PAIN WAS MANAGED WITH RECORDED 2/10 PAIN WHICH WAS PT TOLERABLE LEVEL. ON 01/13 TYLENOL WAS NOT GIVEN AND FENTANYL IV WAS ADDED FOR PAIN MANAGEMENT. PT WAS NOT GIVEN PAIN MEDICATIONS THROUGH THE NIGHT. SPOKE TO PRIMARY RN TODAY AND SHE STATED SHE FELT LIKE SHE WAS "CHASING THE PAIN". SPOKE TO DR. GABRIEL OF [facility] AND HE AGREED TO SCHEDULE TYLENOL 1000 MG Q8 HOURS AND USE OXYCODONE FOR BREAKTHROUGH PAIN. THIS CAN ALSO AID IN ALLEVIATING PAIN. HGB DROPPED 3 POINTS POST SURGERY AND IS NOW STABLE AT 8.8. NO CONCERNS FOR GI BLEED AT THIS TIME. DR. GABRIEL TO PLACE ORDERS. BOWEL CARE STARTED TODAY, AWAITING RESULTS. UPDATED PRIMARY RN
--- NOTE | 2025-01-14 17:19 | NUR ---
SHIFT SUMMARY A/O TO SELF AND TOWN, COOPERATIVE WITH CARE, VITALS STABLE. PT REFUSES ROM EXERCISES AND PT/OT TODAY DUE TO UNCONTROLLED PAIN. NEW PAIN MANAGEMENT REGIMEN INITITATED. PT ABLE TO SLEEP T/O DAY AND APPEARS COMFORTABLE BUT BECOMES RESISTENT AND PAINFUL WITH ANY PERSONAL CARE OR REPOSITIONING. APPETITE FAIR. REMAINS ON RA AND SATING ABOVE 92%. BLANCHABLE REDNESS NOTED TO COCCYX DURING BED BATH, MEPILEX PLACED. PT CURRENTLY RESTING IN HOSPITAL BED WITH BED IN LOWEST POSITION, CALL LIGHT WITHIN REACH.
[2025-01-14] MEDS ORDERED: Acetaminophen 500 MG Tab PO SCH (18:00)
[2025-01-14] MEDS ORDERED: Docusate Sodium/Senna 1 Tab PO SCH (21:00)
[2025-01-15 02:04] VITALS: BP 102/89
--- NOTE | 2025-01-15 04:52 | NUR ---
SHIFT SUMMARY: PT AOX2 TO SELF AND RN, SOMETIMES TO SITUATION. [place], PLEASANT AND COOPERATIVE IN CARE. DRESSING IS CDI, PT COMPLAINS OF SOME PAIN, TOLERATING MEDICATIONS WELL. SWALLOWING SEEMS TO BE MORE LABORED THAN PRIOR SHIFTS. PT ENDORSES PAIN AND MEDICATED PER EMR. STATES RELIEF BUT STILL PAINFUL ON MOVEMENT. INCONTINEN WITH ATTENDS IN PLACE. PT MAKES NEEDS KNOWN OCCASIONALLY BUT HAS BEEN SLEEPING MOST OF THE NIGHT. PT IN BED SLEEPING, BED IN LOWEST POSITION, CALL LIGHT IN REACH. CONTINUING CARE.
[2025-01-15 05:19] LABS: Hemoglobin 9.3 g/dL (13.5-17.5); NRBC ABSOLUTE 0.25 K/mm3 (0.00-0.02); NRBC Auto 0.7 /100 WBC (0.0-0.2); White Blood Cell Count 36.11 K/mm3 (4.00-11.30)
[2025-01-15 05:25] LABS: Hematocrit 34.5 % (37.0-53.0); Mean Corpuscular HGB 16.1 pg (26.0-34.0); Mean Corpuscular Volume 60 fL (80-100); RDW Coefficient Variation 27.3 % (11.7-14.2); RDW Standard Deviation 51.9 fL (35.1-46.3); Red Blood Cell Count 5.78 M/mm3 (4.30-5.90)
[2025-01-15 05:28] LABS: Platelet Count 2759 K/mm3 (150-400)
[2025-01-15 07:13] VITALS: BP 111/68
[2025-01-15] MEDS ORDERED: Enoxaparin 40 MG/0.4 ML SYR SC SCH (09:00)
[2025-01-15 14:41] VITALS: BP 103/46
[2025-01-15 17:03] VITALS: BP 103/46
--- NOTE | 2025-01-15 18:15 | NUR ---
SHIFT SUMMARY PATIENT CONFUSED BUT COOPERATIVE. PATIENT UP TO CHAIR WITH THERAPY. PATIENT HAVING DIFFICULTY FOLLOWING VERBAL CUES WITH USE OF WALKER. PATIENT ATTEMTING TO WALK BACK TO BED BUT NEEDING 2 PERSON ASSIST TO TRANSFER BACK TO BED. PATIENT HAS PAIN WITH MOVEMENT OF R HIP BUT IF UNDISTURBED IS RESTING. PATIENT NOTED TO ROTATE HIP AND KNEE OUTWARDS WHEN RESTING. USING PILLOWS TO KEEP HIP AND KNEE IN ALLIGNMENT. R HIP DRESSING REMOVED AND CLEAN DRY DRESSING APPLIED. SARAI IN PLACE AT THIS TIME.
[2025-01-15 19:56] VITALS: BP 117/54
[2025-01-16 02:49] VITALS: BP 102/47
[2025-01-16 02:52] VITALS: BP 115/56
--- NOTE | 2025-01-16 05:31 | NUR ---
SHIFT SUMMARY PT ALERT ORIENTED TO SELF ABLE TO VERBALIZE NEEDS HES FULL WEIGHT BEARING STATUS TO HIS BLL. S/P DAY 6 CLOSED REDUCTION AND PLACEMENT OF CEPHALOMEDULLARY NAIL. HES INC OF BLADDER WEARS ATTENDS. VSS ON RA SATTING AT 94-98%. C/O RT HIP PAIN MEDICATED WITH OXY WITH GOOD PAIN RELIEF. HE SLEPT MOST OF THE NIGHT. CONTINUES ON A CONTINUOUS PULSE OX. DRESSING WAS CHANGED YESTERDAY TO RT HIP SURGICAL SITE. NO DRAINAGE AT THIS TIME. TAKES PILLS WHOLE WITH NO PROBLEMS. RESTING IN BED AT THIS TIME WITH BED ALARM ON AND CALL LIGHT IN REACH
[2025-01-16 07:15] VITALS: BP 107/48
[2025-01-16] MEDS ORDERED: MIDO5 PO (11:50)
[2025-01-16] MEDS ORDERED: DOCUZEN 8.6-501 EACH PO (11:51)
[2025-01-16] MEDS ORDERED: MIRALAX17 GM PO (11:51)
[2025-01-16] MEDS ORDERED: OXYC5 PO (11:51)
[2025-01-16] MEDS ORDERED: ENOX40I SC (11:52)
[2025-01-16 12:48] VITALS: BP 105/51
--- NOTE | 2025-01-16 13:46 | NUR ---
DISCHARGE NOTE ATTEMPTED TO CALL REPORT TO [facility] - WENT TO ANSWERING MACHINE, MESSAGE LEFT REQUESTING RETURN CALL FOR REPORT. [facility] TWENTY ONE DEALER AT 1340HRS, [facility] TRANSPORT, ASSISTED OVER TO [facility] WITH 3 STAFF. REPORT TO MEDICAL TRANSPORTERS TO PASS ON TO [facility] AND PAPERWORK SENT. MR RODGERS WAS ORIENTATED TO SELF ONLY. HE C/O PAIN TO RIGHT HIP CONSTANTLY, INCREASED PAIN ON MOVEMENT. MEDICATED WITH OXY AT 1245 IN PREPERATION FOR TRANSPORT WHICH HE REPORTED WAS HELPFUL. HE DECLINED TO GET UP TO THE CHAIR THIS MORNING, HE AGREED TO REPOSITION IN BED Q2HRS, PRESSURE RELIEF WITH PILLOWS. HE WAS ABLE TO FOLLOW SIMPLE DIRECTIONS. IS WITH POOR TECHNIQUE, LOW VOLUME. INCONTINENT OF URINE AND STOOL. PIV REMOVED INTACT PRIOR TO DISCHARGE.
== END 2025-01-16 13:32 | disposition home health service (06) | DRG 481 ==
LOC: ER 22:09 → ERHOLD 22:10 → MEDS 22:10
PROVIDERS: Hospitalist; Internal Medicine; Orthopaedic Surgery; Student in an Organized Health Care Education/Training Program; ADMIT Student in an Organized Health Care Education/Training Program
PROC: 0QS606Z Reposition Right Upper Femur with Intramedullary Internal Fixation Device, Open Approach (ICD-10-PCS; principal; 2025-01-10 12:15)
DX: S72.141A Displaced intertrochanteric fracture of right femur, initial encounter for closed fracture (principal); E87.1 Hypo-osmolality and hyponatremia; F05 Delirium due to known physiological condition; I50.22 Chronic systolic (congestive) heart failure; I13.0 Hypertensive heart and chronic kidney disease with heart failure and stage 1 through stage 4 chronic kidney disease, or unspecified chronic kidney disease; W18.30XA Fall on same level, unspecified, initial encounter; F01.50 Vascular dementia, unspecified severity, without behavioral disturbance, psychotic disturbance, mood disturbance, and anxiety; I95.9 Hypotension, unspecified; Z86.73 Personal history of transient ischemic attack (TIA), and cerebral infarction without residual deficits; J45.909 Unspecified asthma, uncomplicated; G47.33 Obstructive sleep apnea (adult) (pediatric); G62.9 Polyneuropathy, unspecified; M19.90 Unspecified osteoarthritis, unspecified site; D45 Polycythemia vera; D75.839 Thrombocytosis, unspecified; Z66 Do not resuscitate; Z88.2 Allergy status to sulfonamides; Z79.82 Long term (current) use of aspirin; I35.0 Nonrheumatic aortic (valve) stenosis; N18.31 Chronic kidney disease, stage 3a; Z79.02 Long term (current) use of antithrombotics/antiplatelets; Z79.899 Other long term (current) drug therapy; H02.409 Unspecified ptosis of unspecified eyelid
CPT/HCPCS: 36415; 70450; 70486; 71045; 72125; 72192; 73502; 73552; 80048; 80053; 81001; 82947; 83735; 84100; 85025; 85027; 85610; 85730; 86850; 86900; 86901; 93005; 93010; 94760; 94762; 96374; 96375; 96376; 97110; 97161; 97165; 97530; 99285-25; A9270; C1713; G0378; J0690; J1100; J1644; J1650; J1885; J2270; J2405; J2704; J3010; J7030; J7040; J7050; J7120

== ENCOUNTER 2025-01-21 09:10 | Emergency (ER) | payer OTHER ==
[~2025-01-21] VITALS: Ht 170.2 cm; Wt 68.0 kg
[~2025-01-21 09:10] MED LIST changes: +DOCUZEN 8.6-501 EACH PO; +ENOX40I SC; +MIDO5 PO; +MIRALAX17 GM PO; +OXYC5 PO
[2025-01-21 09:18] VITALS: BP 115/50
[2025-01-27] MEDS ORDERED: XARELTO20 MG PO (22:42)
[2025-01-27] MEDS ORDERED: Percocet 5-3251 EACH PO (22:49)
[2025-01-27] MEDS ORDERED: DULCOLAX400 MG/5 M PO (22:52)
[2025-01-27] MEDS ORDERED: LOPE2C PO (22:53)
[2025-01-27] MEDS ORDERED: BISA10S PR (22:55)
[2025-02-03] MEDS ORDERED: AMOCLA875 PO (10:08)
[2025-02-03] MEDS ORDERED: MIRT15 PO (10:08)
[2025-02-03] MEDS ORDERED: MIDO5 PO (10:08)
[2025-02-03] MEDS ORDERED: DOXY100 PO (10:09)
== END 2025-01-21 12:13 | disposition home or self-care (01) ==
LOC: ER 09:10
DX: G89.18 Other acute postprocedural pain (principal); M25.551 Pain in right hip; Z47.89 Encounter for other orthopedic aftercare; F03.90 Unspecified dementia, unspecified severity, without behavioral disturbance, psychotic disturbance, mood disturbance, and anxiety; Z86.73 Personal history of transient ischemic attack (TIA), and cerebral infarction without residual deficits; Z88.2 Allergy status to sulfonamides; Z79.82 Long term (current) use of aspirin; Z79.01 Long term (current) use of anticoagulants; Z79.899 Other long term (current) drug therapy
CPT/HCPCS: 73502; 99283-25

== ENCOUNTER 2025-01-25 22:12 | Emergency (ER) | payer OTHER ==
[~2025-01-25] VITALS: Ht 175.3 cm; Wt 63.5 kg
[2025-01-26 00:08] VITALS: BP 122/56
[2025-01-27] MEDS ORDERED: XARELTO20 MG PO (22:42)
[2025-01-27] MEDS ORDERED: Percocet 5-3251 EACH PO (22:49)
[2025-01-27] MEDS ORDERED: DULCOLAX400 MG/5 M PO (22:52)
[2025-01-27] MEDS ORDERED: LOPE2C PO (22:53)
[2025-01-27] MEDS ORDERED: BISA10S PR (22:55)
== END 2025-01-26 00:10 | disposition home or self-care (01) ==
LOC: ER 22:12
DX: Z47.1 Aftercare following joint replacement surgery (principal); Z96.641 Presence of right artificial hip joint
CPT/HCPCS: 99283

== ENCOUNTER 2025-01-27 16:33 | Inpatient (IN) | payer OTHER ==
[~2025-01-27] VITALS: Ht 167.6 cm; Wt 75.3 kg
[2025-01-27 17:16] LABS: Hemoglobin 9.2 g/dL (13.5-17.5); NRBC ABSOLUTE 0.65 K/mm3 (0.00-0.02); NRBC Auto 1.9 /100 WBC (0.0-0.2); White Blood Cell Count 34.79 K/mm3 (4.00-11.30)
[2025-01-27 17:18] LABS: Hematocrit 34.7 % (37.0-53.0); Mean Corpuscular HGB 17.3 pg (26.0-34.0); Mean Corpuscular HGB Conc 26.5 g/dL (31.5-36.5); Mean Corpuscular Volume 65 fL (80-100); Red Blood Cell Count 5.31 M/mm3 (4.30-5.90)
[2025-01-27 17:19] LABS: RDW Coefficient Variation 32.5 % (11.7-14.2)
[2025-01-27 17:20] LABS: Platelet Count 4644 K/mm3 (150-400)
[2025-01-27 17:43] LABS: BASOPHILS ABSOLUTE MAN 0.69 K/mm3 (0.00-0.23); BASOPHILS PERCENT MAN 2 % (0-2); EOSINOPHILS ABSOLUTE MAN 0.69 K/mm3 (0.00-0.68); EOSINOPHILS PERCENT MAN 2 % (0-6); LYMPHOCYTES % ATYPICAL MANUAL 2 % (0-0); LYMPHOCYTES ABSOLUTE MAN 3.47 K/mm3 (0.84-5.20); LYMPHOCYTES PERCENT MAN 8 % (21-46); MONOCYTES ABSOLUTE MAN 2.43 K/mm3 (0.16-1.47); MONOCYTES PERCENT MAN 7 % (4-13); MYELOCYTE ABSOLUTE MAN 0.34 K/mm3 (0.00-0.00); MYELOCYTE PERCENT MAN 1 % (0-0); NEUTROPHILS ABSOLUTE MAN 27.13 K/mm3 (1.96-9.15); SEG NEUTROPHILS PERCENT MAN 78 % (41-73); TOTAL CELLS COUNTED 100
[2025-01-27 17:46] LABS: Bilirubin, Total 1.1 mg/dL (0.1-1.0); Bun/Creatinine Ratio 27.3 (12.0-20.0); Calcium, Blood 8.9 mg/dL (8.5-10.1); Creatinine, Blood 1.1 mg/dL (0.60-1.20); Potassium, Blood 4.9 mmol/L (3.5-5.5)
[2025-01-27 18:56] LABS: International Normalized Ratio 1.11; Prothrombin Time Results 11.8 Sec (9.7-11.5)
--- NOTE | 2025-01-27 21:40 | NUR ---
ARRIVAL TO UNIT PT ARRIVED TO UNIT VIA GOURNEY FROM ED. PT SLID TO BED c SLIDER SHEET. PT ENDORSES PAIN c MOVEMENT. PT A&0 x1-2, ORIENTED TO SELF, MIN UNDERSTANDING OF SITUATION. PT PLESANT & COOPERATIVE c CARE. VSS. R HIP GAUZE & PRESSURE TAPE DRESSING D/I c MOD SANG DRAINAGE. AREA AROUND INCISION BRUISED. LOWER HIP INCISION SITE c STERI STRIP INTACT, NO DRAINAGE VISUALIZED. BRIEF SOAKED UPON ARRIVAL. PT CLEANED c SURGICAL WIPE DOWN & NEW BRIEF PLACED. COCCYX VISUALIZED c NON-BLANCHABLE RED AREA, PIC PLACED IN CHART. MEPILEX PLACED. BACK EXCORIATED. PT PLACED IN GOWN. PERSONAL BELONGINGS PLACED IN BAG, RESTING IN PERSONAL WHEELCHAIR. ORIENTED TO ROOM, BED ALARM IN USE, CALL LIGHT IN REACH.
[2025-01-27 21:41] VITALS: BP 108/51
[2025-01-27] MEDS ORDERED: XARELTO20 MG PO ×2 (22:42)
[2025-01-27] MEDS ORDERED: MIRALAX17 GM PO (22:45)
[2025-01-27] MEDS ORDERED: Ondansetron HCl 2 MG / ML 2ML Vial IV PRN (22:45)
[2025-01-27] MEDS ORDERED: FLU VACC TS2024-25(6MOS UP)/PF 45 MCG/0.5 ML SYRINGE IM ONE (22:45)
[2025-01-27] MEDS ORDERED: Percocet 5-3251 EACH PO ×2 (22:49)
[2025-01-27] MEDS ORDERED: FentaNYL Citrate 50 MCG/ML 2 ML Injection IV PRN (22:50)
[2025-01-27] MEDS ORDERED: NS 1,000 ML IV ONE (22:50)
[2025-01-27] MEDS ORDERED: DULCOLAX400 MG/5 M PO ×2 (22:52)
[2025-01-27] MEDS ORDERED: LOPE2C PO ×2 (22:53)
[2025-01-27] MEDS ORDERED: BISA10S PR ×2 (22:55)
[2025-01-27 23:33] LABS: Hematocrit 32.6 % (37.0-53.0); Hemoglobin 8.5 g/dL (13.5-17.5)
[2025-01-28] VITALS (43 sets, daily range): BP systolic 83–117; BP diastolic 37–63
--- NOTE | 2025-01-28 04:54 | NUR ---
SHIFT SUMMARY S/P INCISION SITE HEMATOMA. NO ACUTE CHANGES OVERNIGHT. VSS, TELE IN USE - NSR @ 80. NPO IN ANTICIPATION OF SURGERY LATER TODAY. IV FLUIDS INFUSING PER EMAR. R HIP DRESSING c MOD SANG DRAINAGE. VOIDING, INCONT, ATTENDS IN USE, PASSING FLATUS. PT REPORTS PAIN TOLERABLE, MEDICATED PER EMAR. PT RESTING IN BED. BED ALARM IN USE. CALL LIGHT IN REACH, WILL REPORT TO DAY RN.
[2025-01-28 05:23] LABS: Hemoglobin 8.3 g/dL (13.5-17.5); Mean Platelet Volume 9.3 fL (9.1-12.4); NRBC Auto 1.3 /100 WBC (0.0-0.2); White Blood Cell Count 30.82 K/mm3 (4.00-11.30)
[2025-01-28 05:26] LABS: Hematocrit 31.4 % (37.0-53.0); Mean Corpuscular HGB 17.6 pg (26.0-34.0); Mean Corpuscular HGB Conc 26.4 g/dL (31.5-36.5); Mean Corpuscular Volume 67 fL (80-100); RDW Coefficient Variation 30.6 % (11.7-14.2); Red Blood Cell Count 4.72 M/mm3 (4.30-5.90)
[2025-01-28 05:28] LABS: Platelet Count 4313 K/mm3 (150-400)
[2025-01-28 05:39] LABS: BAND PERCENT MAN 5 % (0-8); BASOPHILS PERCENT MAN 1 % (0-2); EOSINOPHILS ABSOLUTE MAN 0.61 K/mm3 (0.00-0.68); EOSINOPHILS PERCENT MAN 2 % (0-6); LYMPHOCYTES ABSOLUTE MAN 3.08 K/mm3 (0.84-5.20); LYMPHOCYTES PERCENT MAN 10 % (21-46); METAMYELOCYTE PERCENT MAN 1 % (0-0); MONOCYTES ABSOLUTE MAN 1.23 K/mm3 (0.16-1.47); MONOCYTES PERCENT MAN 4 % (4-13); NEUTROPHILS ABSOLUTE MAN 25.27 K/mm3 (1.96-9.15); SEG NEUTROPHILS PERCENT MAN 77 % (41-73); TOTAL CELLS COUNTED 100
[2025-01-28 05:45] LABS: Albumin, Blood 2.8 g/dL (3.4-5.0); Bilirubin, Total 0.8 mg/dL (0.1-1.0); Calcium, Blood 8.5 mg/dL (8.5-10.1); Creatinine, Blood 1.04 mg/dL (0.60-1.20); Globulin, Blood 2.7 g/dL (2.2-4.0); Potassium, Blood 4.8 mmol/L (3.5-5.5); Total Protein, Blood 5.5 g/dL (6.4-8.2)
[2025-01-28] MEDS ORDERED: CeFAZolin Sodium 2,000 MG in NS 100 ML IV SCH (09:50)
[2025-01-28] MEDS ORDERED: Tranexamic Acid 100 ML IV SCH ×2 (09:50)
[2025-01-28 11:33] LABS: Hematocrit 30.6 % (37.0-53.0)
[2025-01-28] MEDS ORDERED: propofoL 20 ML IV ONE (11:46)
[2025-01-28] MEDS ORDERED: FentaNYL Citrate 50 MCG/ML 2 ML Injection ONE ×2 (11:47→15:11)
[2025-01-28] MEDS ORDERED: CeFAZolin Sodium 2,000 MG VIAL ONE (12:52)
[2025-01-28] MEDS ORDERED: Lactated Ringer's 1,000 ML IV SCH (12:55)
--- NOTE | 2025-01-28 13:00 | NUR ---
PATIENT ALERT AND ORIENTED TO NAME, , LOCATION. STATES HE BELIEVES IT IS DECEMBER, BUT DOES NOT KNOW THE YEAR.
[2025-01-28] MEDS ORDERED: Phenylephrine HCl 100 MCG/ML-NS 10MLSYR (1MG/10ML) ONE (14:02)
[2025-01-28] MEDS ORDERED: Piperacillin/Tazobactam Sod 2.25 GM in NS 50 ML IV SCH ×2 (15:00→18:00)
[2025-01-28 15:03] LABS: Hemoglobin 6.9 g/dL (13.5-17.5)
[2025-01-28 15:05] LABS: Hematocrit 25.6 % (37.0-53.0)
[2025-01-28] MEDS ORDERED: Lactated Ringer's 1,000 ML IV ONE (15:37)
[2025-01-28 16:03] LABS: BASOPHILS ABSOLUTE AUTO 0.32 K/mm3 (0.00-0.23); BASOPHILS PERCENT AUTO 1 % (0-2); EOSINOPHILS ABSOLUTE AUTO 0.72 K/mm3 (0.00-0.68); EOSINOPHILS PERCENT AUTO 3 % (0-6); IMMATURE GRAN ABSOLUTE AUTO 0.51 K/mm3 (0.00-0.10); IMMATURE GRAN PERCENT AUTO 2 % (0-1); LYMPHOCYTES ABSOLUTE AUTO 2.82 K/mm3 (0.84-5.20); LYMPHOCYTES PERCENT AUTO 10 % (21-46); MONOCYTES ABSOLUTE AUTO 1.25 K/mm3 (0.16-1.47); MONOCYTES PERCENT AUTO 5 % (4-13); Mean Platelet Volume 9.4 fL (9.1-12.4); NEUTROPHILS ABSOLUTE AUTO 21.47 K/mm3 (1.96-9.15); NEUTROPHILS PERCENT AUTO 79 % (41-73); NRBC ABSOLUTE 0.46 K/mm3 (0.00-0.02); NRBC Auto 1.7 /100 WBC (0.0-0.2); White Blood Cell Count 27.09 K/mm3 (4.00-11.30)
[2025-01-28 16:13] LABS: Mean Corpuscular HGB 17.7 pg (26.0-34.0); Mean Corpuscular HGB Conc 26.8 g/dL (31.5-36.5); Mean Corpuscular Volume 66 fL (80-100); RDW Coefficient Variation 30.5 % (11.7-14.2)
[2025-01-28 16:15] LABS: Platelet Count 4257 K/mm3 (150-400)
[2025-01-28] MEDS ORDERED: Vancomycin HCL 1,000 MG in NS 250 ML IV ONE (16:30)
--- NOTE | 2025-01-28 17:07 | NUR ---
PATIENT ADMITTED TO PCU20 FROM PACU. PATIENT WAS ADMITTED TO SURGICAL FLOOR LAST NIGHT FOR A RIGHT HIP HEMATOMA. PATIENT RECIEVED I&D TODAY 01/28/25, WOUND VAC PLACED POST I&D. WOUND VAC IS DRAINING BLOODY SERO. DRAINAGE. PATINT REPORTS PAIN TO THE RIGHT HIP-MEDICATED WITH FENTANYL FROM PACU PRIOR TO ADMITTANCE TO FLOOR; PATIENT REPORTS MOST PAIN WITH MOVEMENT. PATINTS BLOOD PRESSURES SOFT IN PACU. PATIENTS B/P SOFT AND MAP HAS BEEN BELOW 60-PO MEICATIONS GIVEN TO IMPROVE BP;SEE EMAR/ORDERS. PATIENT IS COOPERATIVE WITH CARE. POST OP VITALS IN PROGRESS-SEE BOARD OR PROTOCOL FOR POST OP VITALS. PATIENT HAS HX OF DEMENTIA IS LIVES AT [facility] [place]. PATIENT HAD A RECENT RIGHT HIP REPLACEMENT ON 01/10/25. PATIENT IS PLEASANT AND COOPERATIVE WITH CARE. BED IS LOCKED IN THE LOWEST POSITION, BED ALARM ENGAGED FOR PATIENT SAFETY. CALL LIGHT IN REACH.
[2025-01-28] MEDS ORDERED: Midodrine 5 MG Tab PO SCH (18:00)
[2025-01-28 18:45] LABS: Albumin, Blood 2.3 g/dL (3.4-5.0); Bilirubin, Total 0.9 mg/dL (0.1-1.0); Bun/Creatinine Ratio 24.4 (12.0-20.0); Creatinine, Blood 0.98 mg/dL (0.60-1.20); Globulin, Blood 2.2 g/dL (2.2-4.0); Potassium, Blood 4.8 mmol/L (3.5-5.5); Total Protein, Blood 4.5 g/dL (6.4-8.2)
[2025-01-28 20:58] LABS: Hemoglobin 7.2 g/dL (13.5-17.5)
[2025-01-28 21:00] LABS: Hematocrit 25.6 % (37.0-53.0)
--- NOTE | 2025-01-28 21:32 | NUR ---
PHYSICIAN COMMUNICATION SPOKE WITH DR ARGUETA, REGARIDING THE PATIENT BEING HYPOTENSIVE WITH MAP IN THE 50'S. DR ARGUETA ORDERED NS AT 100 ML/HR, AND SAID HE WOULD REVIEW THE PATIENT'S CHART. WILL CONTINUE TO MONITOR.
[2025-01-28] MEDS ORDERED: NS 1,000 ML IV SCH (21:35)
[2025-01-28 22:11] LABS: Hemoglobin 7.1 g/dL (13.5-17.5)
[2025-01-28 22:20] LABS: Hematocrit 25.1 % (37.0-53.0)
[2025-01-28] MEDS ORDERED: NS 500 ML IV SCH (22:40)
[2025-01-29] VITALS (47 sets, daily range): BP systolic 83–122; BP diastolic 37–65
[2025-01-29 05:50] LABS: BASOPHILS ABSOLUTE AUTO 0.25 K/mm3 (0.00-0.23); BASOPHILS PERCENT AUTO 1 % (0-2); EOSINOPHILS ABSOLUTE AUTO 0.32 K/mm3 (0.00-0.68); EOSINOPHILS PERCENT AUTO 1 % (0-6); Hemoglobin 7.3 g/dL (13.5-17.5); IMMATURE GRAN ABSOLUTE AUTO 0.84 K/mm3 (0.00-0.10); IMMATURE GRAN PERCENT AUTO 3 % (0-1); LYMPHOCYTES ABSOLUTE AUTO 1.63 K/mm3 (0.84-5.20); LYMPHOCYTES PERCENT AUTO 5 % (21-46); MONOCYTES PERCENT AUTO 5 % (4-13); Mean Platelet Volume 9.2 fL (9.1-12.4); NEUTROPHILS ABSOLUTE AUTO 28.52 K/mm3 (1.96-9.15); NEUTROPHILS PERCENT AUTO 86 % (41-73); NRBC ABSOLUTE 0.49 K/mm3 (0.00-0.02); NRBC Auto 1.5 /100 WBC (0.0-0.2); White Blood Cell Count 33.26 K/mm3 (4.00-11.30)
[2025-01-29 06:04] LABS: Mean Corpuscular HGB 20.9 pg (26.0-34.0); Mean Corpuscular HGB Conc 29.2 g/dL (31.5-36.5); Mean Corpuscular Volume 72 fL (80-100); RDW Coefficient Variation 31.5 % (11.7-14.2); Red Blood Cell Count 3.49 M/mm3 (4.30-5.90)
[2025-01-29 06:06] LABS: Platelet Count 3318 K/mm3 (150-400)
[2025-01-29 06:11] LABS: Albumin, Blood 2.2 g/dL (3.4-5.0); Bilirubin, Total 0.8 mg/dL (0.1-1.0); Bun/Creatinine Ratio 21.2 (12.0-20.0); Calcium, Blood 7.7 mg/dL (8.5-10.1); Creatinine, Blood 1.18 mg/dL (0.60-1.20); Globulin, Blood 2.1 g/dL (2.2-4.0); Potassium, Blood 4.8 mmol/L (3.5-5.5); Total Protein, Blood 4.3 g/dL (6.4-8.2)
--- NOTE | 2025-01-29 06:35 | NUR ---
SHIFT SUMMARY PATIEN ALERT AND ORIENTED TO SELF AND PERSON. PATIENT CNTINUES TO BE HYPOTENSIVE AFTER ADMINISTERING A UNIT OF PRBC'S OVERNIGHT, PATIENT IS ASYMPTOMATIC. NOTIFIED DR SENA OF THIS AND THAT HIS HEMEGLOBIN ONLY INCREASED 0.2 AT THE RECHECK. ANOTHER UNIT OF PRBC'S WAS ORDERED. PATIENT ON ROOM AIR. WILL CONTINUE TO MONITOR. CALL LIGHT WITHIN REACH.
[2025-01-29] MEDS ORDERED: Acetaminophen 325 MG TABLET PO PRN (07:50)
[2025-01-29 08:36] LABS: Hemoglobin 7.4 g/dL (13.5-17.5)
[2025-01-29] MEDS ORDERED: Midodrine 5 MG Tab PO SCH ×3 (09:00→20:00)
[2025-01-29] MEDS ORDERED: Aspirin 81 MG Chew PO SCH (09:00)
[2025-01-29] MEDS ORDERED: Midodrine 5 MG Tab PO ONE ×2 (09:00→17:00)
[2025-01-29 14:20] LABS: Hemoglobin 8.2 g/dL (13.5-17.5)
[2025-01-29 14:22] LABS: Hematocrit 27.8 % (37.0-53.0)
[2025-01-29] MEDS ORDERED: Vancomycin HCL 1,000 MG in NS 250 ML IV SCH (17:00)
--- NOTE | 2025-01-29 17:37 | NUR ---
SHIFT SUMMARY. PATIENT RECIEVED 1 UNIT PRBC THIS SHIFT; PATIENTS REPEAT Hgb CAME BACK AT 8.2, THERE IS AN ORDER FOR 4 UNITS OF PRBC THAT ARE TO BE HELD AT BLOOD BANK D/T PATIENTS ANTBODIES AND DIFFICULTY TO OBTAIN BLOOD FOR PATIENTS AND PATIENTS NEEDS-PATIENT IS TO HAVE HnH DONE STARTING AT 2200 AND Q8H FOLLOWIN X4 LAB DRAWS. PATIENT IS TO BE NPO AT MIDNIGHT FOR SURGERY TOMORROW 01/30/25. PATIENTS BLOOD PRESSURE HAS REMAINED LOW THIS SHIFT WTH MAP BELOW 60 MOST OF SHIFT. DOCTOR RUDI CALLED THIS MORNING AND NOTIFIED OF PATIENTS LOW BLOOD PRESSURE AND MAP-DOCOTOR ORDERED TO INCRESE DOSE OF MIDODRINE FROM 5MG TO 10MG'S, PATIENTS BLOOD PRESSURE SLIGHTLY IMPROVED ALTOUGH REMAINED LOW FOR MOST OF THE SHIFT. PATIENT EXOERIECED ST ELEVATIONS DURING DR. SHUKLA ROUNDING, DOCTOR VAZQUEZ AWARE AND NO ORDERS OR CHANGE IN CARE MADE. DR. GRIJALVA HAD PLACED ORDER FOR BLOOD; CONTACTED DROCTOR FOR CLARIFICATION AND SPOKE WITH DR. ATWOOD IN REGARDS TO PATIENT ORDER AND PATIENTS LOW BLOOD PRESSURE AND CURRENT MIDODRINE-DR. ATWOOD REVIEWED PATIENTS CHART AND ORDERED FOR 15MG OF MIDIDRINE TO BE GIVEN [id number] TO BE NOTFIED OF 3 CONSECUTIVE MAP <60. PATIET IS PLEASANTLY CONFUSED AND SOMULENT TODAY BUT WAKES EASILY AND IS COOPERATIVE WITH CARE. PATIENT IS RECIEVING CONTINUOUS IV FLUIDS PER ORDER-SEE ORDERS. BED IS LOCKED IN THE LOWEST POSITION WITH CALL LIGHT IN REACH. CARE IS ONGOING.
[2025-01-29] MEDS ORDERED: Lidocaine 2% Viscous Soln 20 ML,Nystatin 100,000 Unit/ml Susp 20 ML,Mag Hydrox/Al Hydro... MT SCH (20:00)
[2025-01-29 22:21] LABS: Hemoglobin 7.8 g/dL (13.5-17.5)
[2025-01-29 22:53] LABS: Hematocrit 26.4 % (37.0-53.0)
[2025-01-30] VITALS (67 sets, daily range): BP systolic 88–118; BP diastolic 36–64
[2025-01-30 06:17] LABS: BASOPHILS ABSOLUTE AUTO 0.36 K/mm3 (0.00-0.23); BASOPHILS PERCENT AUTO 1 % (0-2); EOSINOPHILS PERCENT AUTO 2 % (0-6); Hemoglobin 7.7 g/dL (13.5-17.5); IMMATURE GRAN PERCENT AUTO 2 % (0-1); LYMPHOCYTES ABSOLUTE AUTO 1.65 K/mm3 (0.84-5.20); LYMPHOCYTES PERCENT AUTO 5 % (21-46); MONOCYTES ABSOLUTE AUTO 1.21 K/mm3 (0.16-1.47); MONOCYTES PERCENT AUTO 4 % (4-13); Mean Platelet Volume 9.2 fL (9.1-12.4); NEUTROPHILS ABSOLUTE AUTO 27.92 K/mm3 (1.96-9.15); NEUTROPHILS PERCENT AUTO 86 % (41-73); NRBC ABSOLUTE 0.26 K/mm3 (0.00-0.02); NRBC Auto 0.8 /100 WBC (0.0-0.2); White Blood Cell Count 32.54 K/mm3 (4.00-11.30)
[2025-01-30 06:22] LABS: Hematocrit 26.1 % (37.0-53.0); Mean Corpuscular HGB 21.4 pg (26.0-34.0); Mean Corpuscular HGB Conc 29.5 g/dL (31.5-36.5); Mean Corpuscular Volume 73 fL (80-100); Red Blood Cell Count 3.59 M/mm3 (4.30-5.90)
[2025-01-30 06:23] LABS: RDW Coefficient Variation 30.7 % (11.7-14.2)
[2025-01-30 06:25] LABS: Platelet Count 3063 K/mm3 (150-400)
[2025-01-30 06:39] LABS: Albumin, Blood 2.1 g/dL (3.4-5.0); Albumin/Globulin Ratio 0.9 (0.8-1.8); Bilirubin, Total 0.7 mg/dL (0.1-1.0); Bun/Creatinine Ratio 21.1 (12.0-20.0); Calcium, Blood 7.5 mg/dL (8.5-10.1); Creatinine, Blood 1.23 mg/dL (0.60-1.20); Globulin, Blood 2.3 g/dL (2.2-4.0); Percent Saturation 4.7 % (20.0-50.0); Potassium, Blood 4.3 mmol/L (3.5-5.5); Total Protein, Blood 4.4 g/dL (6.4-8.2)
--- NOTE | 2025-01-30 08:10 | NUR ---
AM ASSESSMENT: Pt resting in bed. NPO for possible surgery today. LS clear. HR reg with prominanty murmur noted. BT positive. PUlses palp. Wound vac to R hip in place with small amount of bloody drainage in canistar. IVF running per orders. Pt oriented to self, place, thinks the month is December, thought he was here because of a stroke. Pt was reoriented to situation. Stated, "oh yeah, It would be easier if I just ". Pt is currently DNR. Palliative care is ordered. Pt repositioned to L side. Midodrine given for low BP. Call light in reach. Will continue to monitor.
[2025-01-30 13:59] LABS: Hematocrit 27.7 % (37.0-53.0)
--- NOTE | 2025-01-30 14:29 | NUR ---
PT TO SURGERY. WILL AWAIT RETURN.
[2025-01-30] MEDS ORDERED: Tranexamic Acid 100 ML IV SCH (14:40)
[2025-01-30] MEDS ORDERED: Lactated Ringer's 1,000 ML IV SCH (14:45)
--- NOTE | 2025-01-30 14:45 | NUR ---
History, Chart, Medications and Allergies reviewed before start of procedure. Pre-Op teaching done. Pt verbalizes understanding. Patient confirms NPO status and agrees with scheduled surgery. PT LEFT ALL BELONGINGS IN PCU ROOM.
[2025-01-30] MEDS ORDERED: Phenylephrine HCl 100 MCG/ML-NS 10MLSYR (1MG/10ML) ONE ×2 (14:59→15:48)
[2025-01-30] MEDS ORDERED: Dexamethasone Sod Phos 10 MG/ML 1ML VIAL ONE (14:59)
[2025-01-30] MEDS ORDERED: propofoL 20 ML IV ONE ×2 (14:59→15:11)
[2025-01-30] MEDS ORDERED: Ondansetron HCl 2 MG / ML 2ML Vial ONE (14:59)
[2025-01-30] MEDS ORDERED: FentaNYL Citrate 50 MCG/ML 2 ML Injection ONE (15:03)
[2025-01-30] MEDS ORDERED: Vasopressin 20 UNITS/ML 1ML Vial ONE (15:21)
[2025-01-30] MEDS ORDERED: Vancomycin HCl 1000 MG ADDvantage ONE (15:42)
[2025-01-30] MEDS ORDERED: EpiNEPhrine 1 MG/1 ML 1ML Vial ONE (15:48)
--- NOTE | 2025-01-30 16:34 | NUR ---
01/30/25 1634 Elva Lloyd SARAI FROM WOUND VAC FOAM REMOVED PRIOR TO PREP SEE ANESTHESIA NOTES CODE BLUE CALLED ON PT AFTER INDUCTION AND PT WAS PLACED INTO LATERAL POSITION WITH A GONZALEZ BAG, PT WAS PLACED BACK IN THE SUPINE POSITION, HE WAS GIVEN EPI AND WE HAD RETURN OF CO2, OR CREW GIVEN OK TO PROCEED BY DR CORTÉS AND DR JAUREGUI
[2025-01-30] MEDS ORDERED: Lactated Ringer's 1,000 ML IV ONE (16:49)
[2025-01-30] MEDS ORDERED: Albuterol 2.5 MG/3 ML VIAL INH PRN (16:50)
[2025-01-30] MEDS ORDERED: FentaNYL Citrate 50 MCG/ML 2 ML Injection IV PRN ×2 (16:50)
[2025-01-30] MEDS ORDERED: Ondansetron HCl 2 MG / ML 2ML Vial IV PRN (16:50)
--- NOTE | 2025-01-30 17:27 | NUR ---
update: Pt back to room PCU 20 post surgery. Pt with pressure dressing to R hip and darell wrapped tightly around hip and abd to provide further pressure. BP very soft, Pt denies dizziness or lightheadedness. Restarted IV NS at 100cc/hr. Will monitor and treat BP per orders.
--- NOTE | 2025-01-30 18:05 | NUR ---
SHIFT SUMMARY: Pt dozing in bed after returning from surgery. See OR note for what happened during procedure. BP Has improved since returning to room. Tight ALLEN wrap in place but adjusted per physician for skin check. No other changes. Will report to night RN.
--- NOTE | 2025-01-30 18:57 | NUR ---
PALLIATIVE CARE VISIT: MET WITH PT IN HIS ROOM. PT ABLE TO PARTICIPATE IN MEANINGFUL DISCUSSION. GOALS OF CARE DISCUSSED WITH PT. PT STATES HE WANTS TO GET THE PROCEDURE TO FIX HIS ARM. DISCUSSED WITH PT WHY HE HAS MADE COMMENTS REGARDING HIM STATING "IT WOULD BE EASIER IF I WAS JUST ." PT INFORMED THIS RN HE IS DEPRESSED BUT HE STILL WANTS TO GET BETTER. PT ALSO STATES HE HAS NO APPETITE AND HE DOES NOT WANT TO EAT WHICH ALSO CONTRIBUTES TO HIM NOT FEELING WELL. PT STATES HE WANTS TO GET BETTER. DISCUSSED CONCERNS WITH PRIMARY RN AND DR. SHUKLA. DR. SHUKLA ORDERED MIRTAZAPINE TO ADDRESS REPORTS AND S/S OF DEPRESSION AND LACK OF APPETITE. LEFT DR. JAUREGUI A MESSAGE PT WANTS PROCEDURE DONE.
[2025-01-30 19:36] LABS: Hemoglobin 7.7 g/dL (13.5-17.5)
[2025-01-30 19:45] LABS: Hematocrit 26.3 % (37.0-53.0)
[2025-01-30] MEDS ORDERED: Mirtazapine 15 MG SoluTab PO SCH (21:00)
[2025-01-31] VITALS (15 sets, daily range): BP systolic 90–125; BP diastolic 41–58
[2025-01-31 04:21] LABS: BASOPHILS ABSOLUTE AUTO 0.35 K/mm3 (0.00-0.23); BASOPHILS PERCENT AUTO 1 % (0-2); EOSINOPHILS ABSOLUTE AUTO 0.23 K/mm3 (0.00-0.68); EOSINOPHILS PERCENT AUTO 1 % (0-6); Hemoglobin 7.6 g/dL (13.5-17.5); IMMATURE GRAN ABSOLUTE AUTO 1.15 K/mm3 (0.00-0.10); IMMATURE GRAN PERCENT AUTO 3 % (0-1); LYMPHOCYTES ABSOLUTE AUTO 1.38 K/mm3 (0.84-5.20); LYMPHOCYTES PERCENT AUTO 3 % (21-46); MONOCYTES ABSOLUTE AUTO 1.26 K/mm3 (0.16-1.47); MONOCYTES PERCENT AUTO 3 % (4-13); Mean Platelet Volume 9.4 fL (9.1-12.4); NEUTROPHILS ABSOLUTE AUTO 39.57 K/mm3 (1.96-9.15); NEUTROPHILS PERCENT AUTO 90 % (41-73); NRBC ABSOLUTE 0.13 K/mm3 (0.00-0.02); NRBC Auto 0.3 /100 WBC (0.0-0.2); White Blood Cell Count 43.94 K/mm3 (4.00-11.30)
[2025-01-31 04:35] LABS: Hematocrit 27.1 % (37.0-53.0); Mean Corpuscular HGB 21.3 pg (26.0-34.0); Mean Corpuscular Volume 76 fL (80-100); RDW Coefficient Variation 31.6 % (11.7-14.2); RDW Standard Deviation 87.3 fL (35.1-46.3); Red Blood Cell Count 3.56 M/mm3 (4.30-5.90)
[2025-01-31 04:37] LABS: Platelet Count 3112 K/mm3 (150-400)
[2025-01-31 05:03] LABS: Albumin, Blood 2.2 g/dL (3.4-5.0); Albumin/Globulin Ratio 0.9 (0.8-1.8); Bilirubin, Total 0.6 mg/dL (0.1-1.0); Bun/Creatinine Ratio 21.2 (12.0-20.0); Calcium, Blood 7.9 mg/dL (8.5-10.1); Creatinine, Blood 1.18 mg/dL (0.60-1.20); Globulin, Blood 2.4 g/dL (2.2-4.0); Potassium, Blood 4.7 mmol/L (3.5-5.5); Total Protein, Blood 4.6 g/dL (6.4-8.2)
[2025-01-31] MEDS ORDERED: CALCIUM GLUC IN NACL, ISO-OSM 50 ML IV ONE (08:50)
[2025-01-31 09:39] LABS: Hemoglobin 7.7 g/dL (13.5-17.5)
[2025-01-31 09:40] LABS: Hematocrit 27.7 % (37.0-53.0)
[2025-01-31 13:04] LABS: Hemoglobin 7.6 g/dL (13.5-17.5)
--- NOTE | 2025-01-31 18:29 | NUR ---
PT SUMMARY; PT REMAINED IN BED MOST OF THE SHIFT, REPOSITIONED Q2 HRS FOR COMFORT, PT C/O PIN THIS MORNIG GIVEN A DOSE OF PAIN MEDICINE AND WAS HELPFUL, PRESSURE DRESSING CHANGED PER DR JAUREGUI, PHOTOS TAKEN IN CHART. SARAI INTACT. SEROUSSANGUINEOUS DRAINAGE. PT INCONTINENT OF BOWEL AND BLADDER ATTENDS IN PLACE. VITALS HRR SR 70'S, SBP 110'S MAP KEPT ABOVE 60'S, SATS ABOVE 95% ON RA, AFEBRILE. PHYSICAL THERAPIST ABLE TO WORK WITH PT. PLAN TO DC PT TO SNF, AWAITING FOR BLOOD CULTURES TO COME BACK, PT MIGHT NEED PICC LINE IF BLOOD CULTURE COMES BACK POSITIVE IF NOT TO DISCHARGE WITH PO ANTIBIOTIC. DIET RESUMED PT ABLE TO TOLERATE. NO OTHER ISSUES ENCOUNTERED FOR THE SHIFT, CALL LIGHTS IN REACH WILL REPORT TO ONCOMING SHIFT
--- NOTE | 2025-02-01 00:40 | NUR ---
PT REPEATEDLY ATTEMPTING TO EXIT BED AND STATES HE DOESN'T UNDERSTAND WHY EVERYONE NEEDS TO KNOW WHERE HE IS GOING OR WHAT IS HE DOING AND THAT HE SHOULD BE ABLE TO FREELY DO WHAT HE WANTS. THIS RN REDIRECTED AND EXPLAINED TO PT THAT STAFF IS ATTEMPTING TO HELP AND ENSURE HIS SAFETY. PT ABLE TO SIT AT BEDSIDE AND LIFT SELF OFF OF BED, BUT UNABLE TO STAND UPRIGHT. HE INSISTS HE CAN WALK TO THE BATHROOM, BUT ALSO SAYS HE USES A WHEELCHAIR AT BASELINE. PT USED BEDSIDE URINAL WHILE SEATED AT EDGE OF BED AND AGREED TO REST BACK IN THE BED. REPOSITIONED, CALL LIGHT WITHIN REACH.
[2025-02-01 03:42] LABS: BASOPHILS ABSOLUTE AUTO 0.36 K/mm3 (0.00-0.23); BASOPHILS PERCENT AUTO 1 % (0-2); EOSINOPHILS PERCENT AUTO 2 % (0-6); Hemoglobin 7.8 g/dL (13.5-17.5); IMMATURE GRAN ABSOLUTE AUTO 0.51 K/mm3 (0.00-0.10); IMMATURE GRAN PERCENT AUTO 2 % (0-1); LYMPHOCYTES ABSOLUTE AUTO 1.37 K/mm3 (0.84-5.20); LYMPHOCYTES PERCENT AUTO 4 % (21-46); MONOCYTES ABSOLUTE AUTO 0.97 K/mm3 (0.16-1.47); MONOCYTES PERCENT AUTO 3 % (4-13); Mean Platelet Volume 9.2 fL (9.1-12.4); NEUTROPHILS ABSOLUTE AUTO 30.91 K/mm3 (1.96-9.15); NEUTROPHILS PERCENT AUTO 89 % (41-73); NRBC ABSOLUTE 0.19 K/mm3 (0.00-0.02); NRBC Auto 0.5 /100 WBC (0.0-0.2); White Blood Cell Count 34.82 K/mm3 (4.00-11.30)
[2025-02-01 03:44] LABS: Hematocrit 27.6 % (37.0-53.0); Mean Corpuscular HGB 21.3 pg (26.0-34.0); Mean Corpuscular HGB Conc 28.3 g/dL (31.5-36.5); Mean Corpuscular Volume 75 fL (80-100); RDW Coefficient Variation 31.5 % (11.7-14.2); Red Blood Cell Count 3.66 M/mm3 (4.30-5.90)
[2025-02-01 03:47] LABS: Platelet Count 3392 K/mm3 (150-400)
[2025-02-01 04:02] LABS: Albumin, Blood 2.4 g/dL (3.4-5.0); Bilirubin, Total 0.6 mg/dL (0.1-1.0); Bun/Creatinine Ratio 18.8 (12.0-20.0); Calcium, Blood 7.8 mg/dL (8.5-10.1); Creatinine, Blood 1.28 mg/dL (0.60-1.20); Globulin, Blood 2.5 g/dL (2.2-4.0); Potassium, Blood 4.3 mmol/L (3.5-5.5); Total Protein, Blood 4.9 g/dL (6.4-8.2)
[2025-02-01 04:04] VITALS: BP 115/59
--- NOTE | 2025-02-01 05:25 | NUR ---
SHIFT SUMMARY - PT ALERT AND ORIENTED ONLY TO SELF, , AND SOMETIMES PLACE. AT TIMES BELIEVES HE IS IN A FRIENDS HOUSE IN [place]. PT REPORTED MILD-MODERATE R HIP PAIN. THIS RN REPOSITIONED PT AND OFFERED PAIN MEDICATION. PT STATED HE DID NOT WANT "THE HARD STUFF", INTERMITTENT CONFUSION REGARDING SAFETY PARAMETERS. PT STATES HE CAN GET UP AND WALK TO RESTROOM, BUT UNABLE TO STAND FULLY UPRIGHT AND UNSTEADY ON HIS FEET. HE IS USING BED PAIN AND BED SIDE URINAL. STATED SEVERAL TIMES THAT HE JUST "WANTED TO GO HOME". HE WAS COMPLIANT AND COOPERATIVE WITH CARE MOST OF THE TIME. TITRATED DOWN TO RA AND SATS ABOVE 90%. COUGHING UP CHAIDEZ/BROWN/THICK SPUTUM OCCASIONALLY TOWARDS END OF SHIFT. BILIARY DRAIN C/D/I AND DRAINING TO GRAVITY. DISCHARGE IS BROWN IN APPEARANCE. SMALL, FIRM MASS IN PTS GROIN/PELVIC AREA, PT STAES IT IS SORE BUT DOESN'T KNOW WHAT THE MASS IS.
[2025-02-01 07:34] VITALS: BP 133/64
[2025-02-01 11:26] VITALS: BP 108/87
[2025-02-01] MEDS ORDERED: Pantoprazole Sodium 40 MG Injection IV SCH (15:00)
[2025-02-01 15:30] VITALS: BP 108/44
--- NOTE | 2025-02-01 18:17 | NUR ---
PT SUMMARY; PT REMAINED CONFUSED, FLIGHT OF IDEAS, PT KEEPS SAYING "I WISH I WAS " "WY DONT YOU JUST THROW ME IN THE RIVER SO YOU WONT HAVE TO DEAL WITH ME" ROLFER ALSO REPORTED THAT PT STATED THAT IF HE HAS A GUN HE WOULD SHOOT HIMSELF. ALUMNI RELATIONS COORDINATOR AND MADE AWARE, APPARENTLY PT HAS BEEN MAKING COMMENTS LIKE THESE SNCE ADMISSION AND PALLIATIVE CARE HAS BEEN INVOLVED. WHEN ALUMNI RELATIONS COORDINATOR HAD A DISCUSSION WIT THE PT AND WAS ASKED IF HE JUST WANTS TO GO HME AND BE COMFORTALE AND STOP ALL THE TREATMENTS PT STATED "NO I DONT WANT TO DO THAT IT'LL MAKE THINGS MORE HARDER FOR ME". THIS RN ALSO ASKED PT WHY HE'S MAKING COMMENTS LIEK THAT PT STATED "IM SORRY I DONT WHY IM SAYING THOSE". PT IS MAKING FUNNY JOKES AT TIMES, WHILE SINGING AND HAVING DIFFERENT CONVERSATIONS/TOPIC. SOMETIMES TALKS TO HIMSELF IN THE ROOM PT VITALS HAS BEEN STABLE OTHERWISE, TRANSITIONED TO SURGICAL STATUS NO TELE. PT HAS BEEN IN THE RECLINER MOST OF THE SHIFT, USES BSC FOR TOILEING WELL. ABLE TO WORK WITH PHYSICAL THERAPIST TODAY. PT TO DC TO [facility] ON MONDAY. RIHT HIP DRESSINGS CHANGED, PREVIOUS DRESSINGS SATURATED AND SOAKED WITH BLOOD PT ALSO C/O CHILLS AND HAD A LOW GRADE FEVER AND SEVERE PAIN ON THE HIP, PAIN MEDS AND TYLENOL WAS GIVEN, TEMP WENT DOWN TO 99.8 FROM 100.9. PT NOW SLEEPING IN BED. PT ALSO STARTED ON PROTONIX FOR HEARTBURN. NO OTHER ISSUES REPORTED FOR THE SHIFT, PT CONTINUES ON NS AT 100MLS/HR. WILL REPORT TO ONCOMING SHIFT
[2025-02-01 18:26] LABS: Hemoglobin 7.3 g/dL (13.5-17.5)
[2025-02-01 18:28] LABS: Hematocrit 26.4 % (37.0-53.0)
[2025-02-01 20:28] VITALS: BP 122/55
[2025-02-01 22:11] LABS: Hematocrit 24.7 % (37.0-53.0)
[2025-02-02 00:20] VITALS: BP 117/55
[2025-02-02 03:18] LABS: BASOPHILS ABSOLUTE AUTO 0.15 K/mm3 (0.00-0.23); BASOPHILS PERCENT AUTO 1 % (0-2); EOSINOPHILS PERCENT AUTO 1 % (0-6); Hemoglobin 7.2 g/dL (13.5-17.5); IMMATURE GRAN ABSOLUTE AUTO 0.43 K/mm3 (0.00-0.10); IMMATURE GRAN PERCENT AUTO 1 % (0-1); LYMPHOCYTES ABSOLUTE AUTO 0.81 K/mm3 (0.84-5.20); LYMPHOCYTES PERCENT AUTO 2 % (21-46); MONOCYTES PERCENT AUTO 3 % (4-13); Mean Platelet Volume 9.2 fL (9.1-12.4); NEUTROPHILS ABSOLUTE AUTO 30.52 K/mm3 (1.96-9.15); NEUTROPHILS PERCENT AUTO 92 % (41-73); NRBC ABSOLUTE 0.33 K/mm3 (0.00-0.02); White Blood Cell Count 33.31 K/mm3 (4.00-11.30)
[2025-02-02 03:23] LABS: Hematocrit 25.6 % (37.0-53.0); Mean Corpuscular HGB 21.1 pg (26.0-34.0); Mean Corpuscular HGB Conc 28.1 g/dL (31.5-36.5); Mean Corpuscular Volume 75 fL (80-100); RDW Coefficient Variation 31.1 % (11.7-14.2); RDW Standard Deviation 85.6 fL (35.1-46.3); Red Blood Cell Count 3.42 M/mm3 (4.30-5.90)
[2025-02-02 03:25] LABS: Platelet Count 3015 K/mm3 (150-400)
[2025-02-02 03:30] LABS: Albumin, Blood 2.3 g/dL (3.4-5.0); Bilirubin, Total 2.7 mg/dL (0.1-1.0); Bun/Creatinine Ratio 20.5 (12.0-20.0); Calcium, Blood 7.6 mg/dL (8.5-10.1); Creatinine, Blood 1.12 mg/dL (0.60-1.20); Globulin, Blood 2.2 g/dL (2.2-4.0); Total Protein, Blood 4.5 g/dL (6.4-8.2)
[2025-02-02 04:07] VITALS: BP 111/54
--- NOTE | 2025-02-02 06:09 | NUR ---
SHIFT SUMMARY PT SLEPT T/O MOST OF SHIFT, VSS. PT HAD ONE EPISODE OF INCONTINENCE. UPON CHANGING BRIEF, PTS WOUND DRESSING BEGAN TO LEAK MODERATE AMOUNTS OF SEROSANGUINOUS DRAINAGE. DRESSING CHANGE COMPLETED. PT REPORTED SEVERE R HIP PAIN AT THIS TIME AND WAS TREATED PER DEC. HE REMAINS ON ROOM AIR, SATS ABOVE 90%.
[2025-02-02 07:31] VITALS: BP 131/61
[2025-02-02 08:34] LABS: Hemoglobin 7.2 g/dL (13.5-17.5)
[2025-02-02 08:35] LABS: Hematocrit 26.5 % (37.0-53.0)
[2025-02-02] MEDS ORDERED: Sod Ferric Gluc Complx/Sucrose 125 MG in NS 100 ML IV SCH (14:00)
[2025-02-02 15:48] VITALS: BP 115/61
[2025-02-02] MEDS ORDERED: Midodrine 5 MG Tab PO SCH (16:00)
[2025-02-02 17:04] LABS: Vancomycin, Trough 17.1 ug/mL (5.0-10.0)
--- NOTE | 2025-02-02 17:50 | NUR ---
PT SUMMARY; NO ACUTE CHANGE FOR THE SHIFT. VITALS HAS BEEN STABLE. PT WAS UP IN THE RECLINER MOST OF THE SHIFT, WAS GIVEN TYLENOL FOR R HIP PAIN AND WAS EFFECTIVE. PT WIT DECREASE APPETITE FOR THE SHIFT. RIGHT HIP DRESSINGS WAS CHANGED WTH SARAI INTACT NO REDNESS/INFLAMMATION AROUND THE SITE, STILL SATURATED WITH SEROUSANGUINEOUS DRAINAGE. NO OTHER ISSUES ENCOUNTERED. WILL REPORT TO ONCOMING SHIFT
[2025-02-02 20:29] VITALS: BP 128/60
[2025-02-03 00:22] VITALS: BP 132/51
[2025-02-03 03:45] LABS: Hemoglobin 7.4 g/dL (13.5-17.5); Mean Platelet Volume 9.5 fL (9.1-12.4); NRBC ABSOLUTE 0.29 K/mm3 (0.00-0.02); NRBC Auto 0.8 /100 WBC (0.0-0.2); White Blood Cell Count 37.05 K/mm3 (4.00-11.30)
[2025-02-03 03:54] LABS: Hematocrit 26.7 % (37.0-53.0); Mean Corpuscular HGB 20.8 pg (26.0-34.0); Mean Corpuscular HGB Conc 27.7 g/dL (31.5-36.5); Mean Corpuscular Volume 75 fL (80-100); RDW Coefficient Variation 31.3 % (11.7-14.2); RDW Standard Deviation 85.5 fL (35.1-46.3); Red Blood Cell Count 3.56 M/mm3 (4.30-5.90)
[2025-02-03 03:55] LABS: Platelet Count 2844 K/mm3 (150-400)
[2025-02-03 04:19] LABS: Albumin, Blood 2.1 g/dL (3.4-5.0); Albumin/Globulin Ratio 0.9 (0.8-1.8); Bilirubin, Total 3.4 mg/dL (0.1-1.0); Bun/Creatinine Ratio 17.1 (12.0-20.0); Calcium, Blood 7.7 mg/dL (8.5-10.1); Creatinine, Blood 1.05 mg/dL (0.60-1.20); Globulin, Blood 2.4 g/dL (2.2-4.0); Potassium, Blood 3.9 mmol/L (3.5-5.5); Total Protein, Blood 4.5 g/dL (6.4-8.2)
[2025-02-03 04:27] LABS: BAND PERCENT MAN 7 % (0-8); BASOPHILS ABSOLUTE MAN 0.37 K/mm3 (0.00-0.23); BASOPHILS PERCENT MAN 1 % (0-2); EOSINOPHILS ABSOLUTE MAN 0.74 K/mm3 (0.00-0.68); EOSINOPHILS PERCENT MAN 2 % (0-6); LYMPHOCYTES ABSOLUTE MAN 1.48 K/mm3 (0.84-5.20); LYMPHOCYTES PERCENT MAN 4 % (21-46); MONOCYTES ABSOLUTE MAN 1.11 K/mm3 (0.16-1.47); MONOCYTES PERCENT MAN 3 % (4-13); NEUTROPHILS ABSOLUTE MAN 33.34 K/mm3 (1.96-9.15); SEG NEUTROPHILS PERCENT MAN 83 % (41-73); TOTAL CELLS COUNTED 100
[2025-02-03 04:31] VITALS: BP 120/57
--- NOTE | 2025-02-03 06:34 | NUR ---
PT STABLE THROUGHOUT THE SHIFT. BP REMAINED WNL WITH MAPS>60. PT INCONTINENT OF URINE AND DID HAVE A BRIEF AND LINEN CHANGE. PT TOLERATING IV ABX WELL. PT IS ABLE TO TAKE PILLS WHOLE WITH WATER. PT IS AOX2, FORGETFUL BUT COOPERATIVE, ABLE TO MAKE NEEDS KNOWN. PT HAD NO C/O PAIN THIS SHIFT AND TOLERATED BEING ROLLED FOR BRIEF/LINEN CHANGE. RT HIP DRESSING REMAINS CLEAN/DRY/INTACT NO SHADOWING OR SIGNS OF LEAKING/SATURATION. GEL SUPPORT REMAINS UNDER RIGHT HIP TO HELP WITH HEMOSTASIS. DISTAL CMS REMAINS INTACT. PT SLEPT FOR MOST OF THE SHIFT BUT WAS ABLE TO BE WOKEN FAIRLY EASILY EVEN BEING HARD OF HEARING.
[2025-02-03 08:24] VITALS: BP 94/56
[2025-02-03] MEDS ORDERED: MIDO5 PO ×2 (10:08)
[2025-02-03] MEDS ORDERED: AMOCLA875 PO ×2 (10:08)
[2025-02-03] MEDS ORDERED: MIRT15 PO ×2 (10:08)
[2025-02-03] MEDS ORDERED: DOXY100 PO ×2 (10:09)
--- NOTE | 2025-02-03 11:26 | NUR ---
DISCHARGE: PATIENT ALERT AND ORIENTED X2-3. FORGETFULL. BASELINE DEMENTIA. BED ALARM AND CHAIR ALARMS IN USE. MOVING ALL EXTREMITIES. INTERMIT RIGHT HIP PAIN. UP WITH 1-2 PERSON, GAIT BELT AND FWW. UP TO RECLINER THIS AM FOR BREAKFAST. NO TELE. SURGICAL STATUS. SBP 90'S. PO MIDODRINE GIVEN THIS AM DR. FELIPE UPDATED. EDEMA NOTED TO BUE AND RIGHT HIP. SCATTERED BRUISING. IRON INFUSED THIS AM. DENIES CHEST PAIN/PRESSURE. ON ROOM AIR SATING ABOVE 95%. DENIES SOB/COUGH. LUNG SOUNDS CLEAR AND DIM. BOWEL TONES PRESENT. TOLERATING PO DIET. INCONTINENT. ATTENDS IN PLACE. DENIES ABDOMINAL PAIN/NAUSEA. RIGHT HIP DRESSING CHANGED PER ORDERS. DISCHARGE TO [facility]. POA CALLED BY THIS RN TO UPDATE, NO ANSWER MESSAGE LEFT WITH CALL BACK NUMBER. REPORT CALLED TO [facility]. PATIENT LEFT UNIT AT 1106 VIA PERSONAL WHEELCHAIR.
== END 2025-02-03 11:15 | disposition home or self-care (01) | DRG 908 ==
LOC: ER 16:33 → SURS 20:08 → PCU 20:08 → SURS 21:14 → PCU 01-28 15:42
PROVIDERS: Hospitalist; Internal Medicine; Orthopaedic Surgery; Student in an Organized Health Care Education/Training Program; ADMIT Internal Medicine
PROC: 0KDN0ZZ Extraction of Right Hip Muscle, Open Approach (ICD-10-PCS; principal; 2025-01-29)
PROC: 30233N1 Transfusion of Nonautologous Red Blood Cells into Peripheral Vein, Percutaneous Approach (ICD-10-PCS; 2025-01-30)
DX: M96.840 Postprocedural hematoma of a musculoskeletal structure following a musculoskeletal system procedure (principal); D62 Acute posthemorrhagic anemia; T81.44XA Sepsis following a procedure, initial encounter; L03.115 Cellulitis of right lower limb; F03.90 Unspecified dementia, unspecified severity, without behavioral disturbance, psychotic disturbance, mood disturbance, and anxiety; Y83.8 Other surgical procedures as the cause of abnormal reaction of the patient, or of later complication, without mention of misadventure at the time of the procedure; D45 Polycythemia vera; W18.30XA Fall on same level, unspecified, initial encounter; Z86.73 Personal history of transient ischemic attack (TIA), and cerebral infarction without residual deficits; I35.0 Nonrheumatic aortic (valve) stenosis; Z96.641 Presence of right artificial hip joint; D63.1 Anemia in chronic kidney disease; N18.31 Chronic kidney disease, stage 3a; Z66 Do not resuscitate; I95.9 Hypotension, unspecified; Z88.2 Allergy status to sulfonamides
CPT/HCPCS: 36415; 36430; 73502; 80053; 80202; 82330; 82728; 83540; 83550; 84702; 85014; 85018; 85025; 85610; 85730; 86850; 86870; 86900; 86901; 86902; 86920; 86922; 87040; 87070; 87075; 87205; 93005; 93010; 94760; 97110; 97162; 97530; 99284-25; A9270; C1769; J0171; J0612; J0690; J1100; J2371; J2405; J2470; J2543; J2704; J2916; J3010; J3370; J7030; J7050; J7120; P9016

== ENCOUNTER 2025-02-05 11:51 | Emergency (ER) | payer OTHER ==
[~2025-02-05] VITALS: Ht 170.2 cm; Wt 79.4 kg
[~2025-02-05 11:51] MED LIST changes: +AMOCLA875 PO; +BISA10S PR; +DOXY100 PO; +DULCOLAX400 MG/5 M PO; +LOPE2C PO; +MIRT15 PO; +Percocet 5-3251 EACH PO; +XARELTO20 MG PO
[2025-02-05 18:15] VITALS: BP 132/54
== END 2025-02-05 19:20 | disposition home or self-care (01) ==
LOC: ER 11:51
DX: M96.830 Postprocedural hemorrhage of a musculoskeletal structure following a musculoskeletal system procedure (principal); N18.31 Chronic kidney disease, stage 3a; Z88.2 Allergy status to sulfonamides; Z79.82 Long term (current) use of aspirin; Z79.1 Long term (current) use of non-steroidal anti-inflammatories (NSAID); Z79.2 Long term (current) use of antibiotics; Z79.899 Other long term (current) drug therapy
CPT/HCPCS: 99283; A6590

== ENCOUNTER 2025-02-10 11:02 | Emergency (ER) | payer OTHER ==
[~2025-02-10] VITALS: Ht 175.3 cm; Wt 90.7 kg
[2025-02-10 12:46] LABS: BASOPHILS ABSOLUTE AUTO 0.38 K/mm3 (0.00-0.23); BASOPHILS PERCENT AUTO 1 % (0-2); EOSINOPHILS ABSOLUTE AUTO 1.13 K/mm3 (0.00-0.68); EOSINOPHILS PERCENT AUTO 4 % (0-6); Hemoglobin 8.3 g/dL (13.5-17.5); IMMATURE GRAN ABSOLUTE AUTO 0.56 K/mm3 (0.00-0.10); IMMATURE GRAN PERCENT AUTO 2 % (0-1); LYMPHOCYTES ABSOLUTE AUTO 1.82 K/mm3 (0.84-5.20); LYMPHOCYTES PERCENT AUTO 6 % (21-46); MONOCYTES ABSOLUTE AUTO 0.77 K/mm3 (0.16-1.47); MONOCYTES PERCENT AUTO 3 % (4-13); Mean Platelet Volume 9.7 fL (9.1-12.4); NEUTROPHILS ABSOLUTE AUTO 25.55 K/mm3 (1.96-9.15); NEUTROPHILS PERCENT AUTO 85 % (41-73); NRBC ABSOLUTE 0.06 K/mm3 (0.00-0.02); NRBC Auto 0.2 /100 WBC (0.0-0.2); White Blood Cell Count 30.21 K/mm3 (4.00-11.30)
[2025-02-10 12:49] LABS: Hematocrit 31.1 % (37.0-53.0); Mean Corpuscular HGB 21.8 pg (26.0-34.0); Mean Corpuscular HGB Conc 26.7 g/dL (31.5-36.5); Mean Corpuscular Volume 82 fL (80-100); RDW Coefficient Variation 34.6 % (11.7-14.2); Red Blood Cell Count 3.81 M/mm3 (4.30-5.90)
[2025-02-10 12:56] LABS: Platelet Count 2340 K/mm3 (150-400)
[2025-02-10] MEDS ORDERED: ONDA4 PO (13:09)
[2025-02-10 18:49] VITALS: BP 123/58
== END 2025-02-10 18:56 | disposition home or self-care (01) ==
LOC: ER 11:02
PROVIDERS: Emergency Medicine
DX: L76.22 Postprocedural hemorrhage of skin and subcutaneous tissue following other procedure (principal); N18.31 Chronic kidney disease, stage 3a; F03.90 Unspecified dementia, unspecified severity, without behavioral disturbance, psychotic disturbance, mood disturbance, and anxiety; Z86.73 Personal history of transient ischemic attack (TIA), and cerebral infarction without residual deficits; Z88.2 Allergy status to sulfonamides; Z79.82 Long term (current) use of aspirin; Z79.01 Long term (current) use of anticoagulants; Z79.2 Long term (current) use of antibiotics; Z79.899 Other long term (current) drug therapy
CPT/HCPCS: 36415; 85025; 99283

== ENCOUNTER 2025-02-19 14:01 | Emergency (ER) | payer OTHER ==
[~2025-02-19] VITALS: Ht 167.6 cm; Wt 72.6 kg
[~2025-02-19 14:01] MED LIST changes: +ONDA4 PO
[2025-02-19 15:37] VITALS: BP 167/81
== END 2025-02-19 16:10 | disposition home or self-care (01) ==
LOC: ER 14:01
DX: Z47.89 Encounter for other orthopedic aftercare (principal); Z88.2 Allergy status to sulfonamides; Z79.82 Long term (current) use of aspirin
CPT/HCPCS: 99284